=== PATIENT | male | born 1955 | race Caucasian/White ===

== ENCOUNTER → 2016-10-28 | Outpatient (CLI) | payer BC ==
[~2016-10-28] MED LIST: ANDROGEL TOP; ASPEC81 PO; HYD10 PO; LRT5 PO; SYN25 PO
--- NOTE | 2016-10-28 11:28 | DIAGNOSTIC IMAGING REPORT ---
EXTREMITY NONVASCULAR LIMITED HISTORY: 61 years-old Male LEFT UPPER GROIN MASS/LUMP COMPARISON: Doppler study 05/28/2014 TECHNIQUE: Multiple real-time sonographic images of the left lower the venous structures were obtained assessing grayscale appearance and color flow FINDINGS: There is occlusive echogenic thrombus within the greater saphenous vein extending to 0.5 cm from the junction with the common femoral vein. This extends from the groin to the calf. No additional thrombi are identified. IMPRESSION: Isolated occlusive thrombus of the greater saphenous vein extends from the groin to the calf and is 2.5 cm in proximity from the junction of the common femoral vein. The above report was generated using voice recognition software. It may contain grammatical, syntax or spelling errors. Electronically signed by: Warren Ribeiro M.D. 10/28/2016 11:27 AM Dictated Date/Time: 10/28/2016 11:24 AM
== END | disposition home or self-care (01) ==
LOC: C.ULTRBC 10:35
PROVIDERS: ATTEND Family Medicine
DX: R59.0 Localized enlarged lymph nodes (principal); I82.812 Embolism and thrombosis of superficial veins of left lower extremity

== ENCOUNTER 2017-07-25 13:09 | Inpatient (IN) | payer BC ==
[~2017-07-25] VITALS: Ht 177.8 cm; Wt 100.7 kg
[2017-07-25] MEDS ORDERED: HYDR20TA PO (13:44)
[2017-07-25] MEDS ORDERED: SIMV20TA2 PO (13:44)
[2017-07-25] MEDS ORDERED: HYD10 PO (13:44)
[2017-07-25] MEDS ORDERED: LEVO100T PO (13:44)
[2017-07-25] MEDS ORDERED: ASPI81TA28 PO (13:44)
[2017-07-25] MEDS ORDERED: ANDG TOP (13:44)
[2017-07-25] MEDS ORDERED: SODIUM CHLORIDE 0.9% 1000ML 1,000 ML IV ONE (13:45)
[2017-07-25] MEDS ORDERED: OPTIRAY 320 IV PRN (14:00)
[2017-07-25 14:19] LABS: BASO % 0.4 %; BASO ABS # 0.02 K/uL (0-0.2); EOS % 0.7 %; EOS ABS # 0.03 K/uL (0-0.5); HEMATOCRIT 43.8 % (42-52); HEMOGLOBIN 15.3 g/dL (14.0-18.0); IG# 0.15 K/uL (0.00-0.02); LYMPH ABS # 1.09 K/uL (1.2-3.4); MEAN CELL VOLUME 86.2 fL (80-100); MEAN CORPUSCULAR HEMOGLOBIN 30.1 pg (25-34); MEAN CORPUSCULAR HGB CONC 34.9 g/dl (32-36); MEAN PLATELET VOLUME 9.5 fL (7.4-10.4); MONO % 13.2 %; NEUT % 58.4 %; NEUT ABS # 2.65 K/uL (1.4-6.5); PLATELET COUNT 327 K/uL (130-400); RED CELL DISTRIBUTION WIDTH CV 13.1 % (11.5-14.5); RED CELL DISTRIBUTION WIDTH SD 41.7 fL (36.4-46.3); WHITE BLOOD COUNT 4.54 K/uL (4.8-10.8)
[2017-07-25 14:26] LABS: PTT PATIENT 28.4 SECONDS (21.0-31.0)
[2017-07-25 14:39] LABS: ALBUMIN 3.9 gm/dl (3.4-5.0); CALCIUM 9.2 mg/dl (8.5-10.1); CREATININE 1.09 mg/dl (0.60-1.40); POTASSIUM 4.2 mmol/L (3.5-5.1)
[2017-07-25 14:41] LABS: TOTAL PROTEIN 7.2 gm/dl (6.4-8.2)
--- NOTE | 2017-07-25 15:53 | DIAGNOSTIC IMAGING REPORT ---
(CHEST FOR PE) ANGIO WITH CLINICAL HISTORY: 62 years-old Male presenting with ^Extensive right side proximal DVT on out patient ultrasound. TECHNIQUE: Multidetector CT angiography of the chest was performed after administration of intravenous contrast. 3-D volumetric and/or maximum intensity projection (MIP) images were subsequently reconstructed for review. IV contrast: 94 mL of Optiray 320. A dose lowering technique was used consistent with the principles of ALARA (as low as reasonably achievable). COMPARISON: None. CT DOSE (mGy.cm): The estimated cumulative dose is 984.07 mGy.cm. FINDINGS: Remedial Teacher topogram: Unremarkable. Pulmonary vasculature: The study is suboptimal for the assessment of the pulmonary vascular tree secondary to timing of the contrast bolus and respiratory motion artifact. Filling defect consistent with pulmonary embolus eccentrically in the distal portion of the right lower lobe pulmonary artery. This extends into segmental branches supplying the posterior basal right lower lobe. No other embolus is identified. Main pulmonary artery is not enlarged. No flattening of the interventricular septum. No intracardiac filling defect. No reflux of contrast into the hepatic veins. Remaining chest: On soft tissue windows, normal thyroid and thoracic inlet. No axillary, supraclavicular, hilar, or mediastinal lymphadenopathy. Atherosclerosis of the aorta. Normal heart size. No pericardial or pleural effusion. Upper abdomen normal. On lung windows, minimal dependent changes likely atelectasis. No other focal nodule or infiltrate. Mild bronchial wall thickening with lower lobe predominance suggested. No interlobular septal thickening. Central airways patent. On bone windows, degenerative changes of the spine. IMPRESSION: 1. Limited pulmonary embolus burden affecting the distal portion of the right lower lobe pulmonary artery and segmental branches supplying the posterior basal segment of the right lower lobe. Eccentricity of this limited abnormality raises suspicion for a subacute or chronic embolus. 2. No CT evidence of right heart strain. 3. Mild bronchial wall thickening could suggest slight congestive change. 4. Atelectasis. No evidence of pulmonary infarct. The report will be called/faxed according to standard departmental protocol. Electronically signed by: Raheem De Leon M.D. 07/25/2017 3:52 PM Dictated Date/Time: 07/25/2017 3:46 PM
--- NOTE | 2017-07-25 16:17 | DIAGNOSTIC IMAGING REPORT ---
ANGIO ABD/PELVIS WITH CONTRAST CLINICAL HISTORY: 62 years-old Male with Extensie right side proximal DVT ON on outpatient ultrasound extensive deep venous thrombosis of the right lower extremity with pulmonary embolus COMPARISON STUDY: CTA of the chest of same day, TECHNIQUE: Following the IV administration of 94 cc of Optiray 320, CT angiogram of the abdomen and pelvis was performed from the lung bases the proximal femora. Images are reviewed in the axial, sagittal, and coronal planes. 3-D MIPS images are created and assessed. IV contrast was administered without complication. A dose lowering technique was utilized adhering to the principles of ALARA. All measurements were obtained according to NASCET criteria. FINDINGS: CT ABDOMEN/PELVIS: Subsegmental bibasilar groundglass opacities suggest atelectasis. Mild bilateral bronchial wall thickening. Eccentric emboli within right lower lobe segmental and subsegmental pulmonary arterial branches is better assessed on CTA of the chest of same day. There is no pneumatosis or pneumoperitoneum identified. The imaged inferior cardiac chambers appear mildly enlarged. Liver, spleen, pancreas and adrenal glands are within normal limits. Gallbladder is also unremarkable. Mild nonspecific bilateral perinephric fat stranding without renal calculi or hydronephrosis. Moderate circumferential wall thickening of the bladder. Small fat filled left inguinal hernia. No retroperitoneal adenopathy. No bowel obstruction. There is mild wall thickening of the mid sigmoid colon with mild pericolonic inflammatory stranding. Several diverticula are also noted within this distribution. There is an ovoid 1.8 cm focus of air along the antimesenteric border of the mid sigmoid colon on image 321 series 5. No drainable fluid collections. The appendix is nicely seen and may be surgically absent. Soft tissues are unremarkable. Bones appear mildly demineralized. Indeterminate 11 mm lucent lesion involves left aspect of the L4 vertebral body. Multilevel degenerative changes about the spine. CTA: Expansile thrombus involves the distal aspect of the right external iliac vein, and visualized common femoral vein. No IVC thrombus identified. No aortic aneurysm or dissection identified. Moderate mixed plaquing of the aorta. Iliac and imaged femoral vessels appear patent. Celiac trunk, superior and inferior mesenteric arteries are widely patent. Bilateral renal arteries are also widely patent. Dual renal arterial supply on the right. Splenic artery appears unremarkable. IMPRESSION: 1. Expansile thrombus involves the distal aspect of the right external iliac vein, and visualized common femoral vein. No IVC thrombus identified. 2. Moderate atherosclerosis of the abdominal aorta without aneurysm or dissection. 3. Colonic diverticulosis with mild inflammatory stranding of the mid sigmoid colon suspicious for mild acute diverticulitis. Focus of ovoid air adjacent to the mid sigmoid colon lumen suggests a large diverticulum or alternatively a small focus of extraluminal air. Close correlation is advised. 4. Moderate wall thickening of the bladder. Correlate with urinalysis to exclude cystitis. The above report was generated using voice recognition software. It may contain grammatical, syntax or spelling errors. Electronically signed by: Warren Ribeiro M.D. 07/25/2017 4:15 PM Dictated Date/Time: 07/25/2017 3:55 PM
[2017-07-25] MEDS ORDERED: HEPARIN 25000 UNIT/500 ML D5W ONE (16:36)
[2017-07-25] MEDS ORDERED: HEPARIN SOD (PORCINE) 1000 UNIT/ML 10 ML VIAL ONE (16:37)
[2017-07-25] MEDS ORDERED: ACETAMINOPHEN 325 MG TAB PO PRN (18:00)
[2017-07-25] MEDS ORDERED: MAGNESIUM HYDROXIDE SUSP 30 ML UDC PO PRN (18:00)
[2017-07-25] MEDS ORDERED: ONDANSETRON INJ 2 MG/ML 2 ML VIAL IV PRN (18:00)
--- NOTE | 2017-07-25 18:23 | History and Physical ---
History & Physical Date & Time of Service: Jul 25, 2017 at 18:01 Chief Complaint: DVT Primary Care Physician: Jesse Valentino M.D. History of Present Illness Source: patient 62 y/o M c/o R LE redness, swelling, and pain. Pt states that this started about a week ago and has gotten worse since that time. He did drive to [place] on Monday and back on Monday, but this had already started prior to that trip. Pt denies fever, SOB, chest pain, abd pain, n/v/c/d. Pt had a L LE DVT about 10 months ago. He was on xarelto for about 3 weeks for this, but developed a rash and this was stopped. The DVT was small, and it was felt that 3 weeks of xarelto would be sufficient if started on aspirin 81mg to follow. He had no recurrence of this DVT since that time. There was discussion at that time about the potential role of androgel in the development of the initial DVT. Pt had a pituitary adenoma that was tx with surgery and radiation in 2004. This was found to be benign. He was put on androgel at that time. No issues until the DVT in 2017. He decreased his use to QOD after this DVT due to this concern. He has been a bit more fatigued at work lately, but otherwise feels fine. States his appetite is good and he feels like he has gained some weight. He works at [employer] and [employer] and is on his feet all day. No unusual bruising, bleeding. He had a c-scope a few months ago that was neg. His father had prostate ca and pt is on androgel, so he gets checked yearly and has had no issues. No issues with urinary retention, starting/stopping stream, etc. Past Medical/Surgical History Medical Problems: (1) DVT (deep venous thrombosis) Hypothyroid Hyperlipidemia s/p pituitary adenoma tx in 2004, benign Family History Father with prostate cancer Neg for clotting issues Social History Smoking Status: Never Smoker Alcohol Use: none Drug Use: none Allergies Coded Allergies: Rivaroxaban (Unverified Adverse Reaction, Mild, rash, 07/25/17) Home Medications Scheduled Aspirin (Aspirin Ec), 81 MG PO DAILY Hydrocortisone (Cortef), 10 MG PO DAILY Hydrocortisone (Cortef), 20 MG PO DAILY Levothyroxine Sodium (Synthroid), 100 MCG PO DAILY Simvastatin (Zocor), 20 MG PO QPM Testosterone (Androgel), 1 PKT TOP DAILY Review of Systems Pertinent positives and negatives reviewed in HPI--all others negative Physical Exam Vital Signs Date Time Temp Pulse Resp B/P (MAP) Pulse Ox O2 Delivery O2 Flow Rate FiO2 07/25/17 16:58 65 16 145/72 98 Room Air 07/25/17 15:39 72 16 151/91 99 Room Air 07/25/17 13:59 72 16 146/95 98 Room Air 07/25/17 13:59 99 Room Air 07/25/17 13:30 73 07/25/17 13:16 36.4 69 18 149/86 99 Room Air General Appearance: WD/WN, no apparent distress Head: normocephalic, atraumatic Eyes: normal inspection, sclerae normal Respiratory/Chest: normal breath sounds, no respiratory distress Cardiovascular: regular rate, rhythm, normal peripheral pulses Abdomen/GI: non tender, soft Extremities/Musculoskelatal: + pedal edema (R LE), + swelling (R LE), + pertinent finding (Diffuse TTP along R medial LE) Neurologic/Psych: alert, normal mood/affect, oriented x 3 Skin: warm/dry, + pertinent finding (Redness along medial R LE) Diagnostics Laboratory Results Results Past 24 Hours Test 07/25/17 13:50 07/25/17 14:00 07/25/17 14:11 Range/Units White Blood Count 4.54 4.8-10.8 K/uL Red Blood Count 5.08 4.7-6.1 M/uL Hemoglobin 15.3 14.0-18.0 g/dL Hematocrit 43.8 42-52 % Mean Corpuscular Volume 86.2 80-100 fL Mean Corpuscular Hemoglobin 30.1 25-34 pg Mean Corpuscular Hemoglobin Concent 34.9 32-36 g/dl Platelet Count 327 130-400 K/uL Mean Platelet Volume 9.5 7.4-10.4 fL Neutrophils (%) (Auto) 58.4 % Lymphocytes (%) (Auto) 24.0 % Monocytes (%) (Auto) 13.2 % Eosinophils (%) (Auto) 0.7 % Basophils (%) (Auto) 0.4 % Neutrophils # (Auto) 2.65 1.4-6.5 K/uL Lymphocytes # (Auto) 1.09 1.2-3.4 K/uL Monocytes # (Auto) 0.60 0.11-0.59 K/uL Eosinophils # (Auto) 0.03 0-0.5 K/uL Basophils # (Auto) 0.02 0-0.2 K/uL RDW Standard Deviation 41.7 36.4-46.3 fL RDW Coefficient of Variation 13.1 11.5-14.5 % Immature Granulocyte % (Auto) 3.3 % Immature Granulocyte # (Auto) 0.15 0.00-0.02 K/uL Prothrombin Time 10.7 9.0-12.0 SECONDS Prothromb Time International Ratio 1.0 0.9-1.1 Activated Partial Thromboplast Time 28.4 21.0-31.0 SECONDS Partial Thromboplastin Ratio 1.1 Sodium Level 137 136-145 mmol/L Potassium Level 4.2 3.5-5.1 mmol/L Chloride Level 103 98-107 mmol/L Carbon Dioxide Level 27 21-32 mmol/L Anion Gap 7.0 3-11 mmol/L Blood Urea Nitrogen 11 7-18 mg/dl Creatinine 1.09 0.60-1.40 mg/dl Est Creatinine Clear Calc Drug Dose 82.9 ml/min Estimated GFR () 83.3 Estimated GFR (Non- 71.9 BUN/Creatinine Ratio 9.9 10-20 Random Glucose 88 70-99 mg/dl Calcium Level 9.2 8.5-10.1 mg/dl Total Bilirubin 0.6 0.2-1 mg/dl Aspartate Amino Transf (AST/SGOT) 20 15-37 U/L Alanine Aminotransferase (ALT/SGPT) 22 12-78 U/L Alkaline Phosphatase 54 45-117 U/L Total Protein 7.2 6.4-8.2 gm/dl Albumin 3.9 3.4-5.0 gm/dl Globulin 3.3 2.5-4.0 gm/dl Albumin/Globulin Ratio 1.2 0.9-2 Bedside Troponin I < 0.030 0-0.045 ng/ml Diagnostic Radiology CT chest: 1. Limited pulmonary embolus burden affecting the distal portion of the right lower lobe pulmonary artery and segmental branches supplying the posterior basal segment of the right lower lobe. Eccentricity of this limited abnormality raises suspicion for a subacute or chronic embolus. 2. No CT evidence of right heart strain. 3. Mild bronchial wall thickening could suggest slight congestive change. 4. Atelectasis. No evidence of pulmonary infarct. CTAP: 1. Expansile thrombus involves the distal aspect of the right external iliac vein, and visualized common femoral vein. No IVC thrombus identified. 2. Moderate atherosclerosis of the abdominal aorta without aneurysm or dissection. 3. Colonic diverticulosis with mild inflammatory stranding of the mid sigmoid colon suspicious for mild acute diverticulitis. Focus of ovoid air adjacent to the mid sigmoid colon lumen suggests a large diverticulum or alternatively a small focus of extraluminal air. Close correlation is advised. 4. Moderate wall thickening of the bladder. Correlate with urinalysis to exclude cystitis. Impression Assessment and Plan 62 y/o M who was admitted on 07/25 for DVT DVT: extensive R LE DVT Unprovoked by hx with prior hx of L LE DVT unprovoked in 2017 as well Coag work-up initiated in the ED Heparin gtt Rash with xarelto use, would be a good candidate for eliquis--this will need called in to insurance tomorrow for coverage options May need t/c d/c of androgel if other work-up is neg Recent c-scope and prostate screenings neg, CBC neg PE: Subacute to chronic, no hx of respiratory issues Heparin gtt and monitor Hyperlipidemia: continue home meds Hypothyroid: continue home meds Other: Full code Reg diet Heparin gtt for DVT proph Resuscitation Status VTE Prophylaxis Will order VTE Prophylaxis: Yes
--- NOTE | 2017-07-25 18:27 | EMERGENCY ROOM VISIT NOTE ---
History First contact with patient: 13:28 Chief Complaint: REFERRED BY DOCTOR Stated Complaint: DVT History of Present Illness The patient is a 62 year old male who presents to the Emergency Room with complaints of right leg DVT on outpatient ultrasound. 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 He noticed that he was having some increased right leg discomfort over the past 4-5 days, and went his primary care physician today. Ultrasound shows an extensive DVT extending into the proximal iliacs as well as superficial thrombus in the saphenous of the right lower extremity. There was no thrombus noted in the left lower leg. The patient has not had fever or chills. He is not reporting chest pain, chest tightness, or shortness of breath. He does have a one episode of unprovoked DVT in the past, and was on Xarelto. Evidently he developed facial itching and rash while on the Xarelto, and this was ultimately discontinued. He has been doing well for about 8 or 9 months. He states that he did drive to and from [place] this past weekend, but states that he had been having some leg discomfort before this trip. No other significant travel history is reported. He is on Androgel for the past 12 years. No family history of DVT or PE. The patient is on aspirin daily. He otherwise feels well and rates his discomfort a 5/10. Review of Systems More than 10 systems were reviewed and otherwise negative with the exception of history of present illness. Past Medical/Surgical History History of DVT, hypothyroid, elevated cholesterol Family History No pertinent family history Social History Smoking Status: Never Smoker Housing Status: lives with family Occupation Status: employed Current/Historical Medications Scheduled Aspirin (Aspirin Ec), 81 MG PO DAILY Hydrocortisone (Cortef), 10 MG PO DAILY Hydrocortisone (Cortef), 20 MG PO DAILY Levothyroxine Sodium (Synthroid), 100 MCG PO DAILY Simvastatin (Zocor), 20 MG PO QPM Testosterone (Androgel), 1 PKT TOP DAILY Physical Exam Vital Signs Date Time Temp Pulse Resp B/P (MAP) Pulse Ox O2 Delivery O2 Flow Rate FiO2 07/25/17 16:58 65 16 145/72 98 Room Air 07/25/17 15:39 72 16 151/91 99 Room Air 07/25/17 13:59 72 16 146/95 98 Room Air 07/25/17 13:59 99 Room Air 07/25/17 13:30 73 07/25/17 13:16 36.4 69 18 149/86 99 Room Air Physical Exam VITALS: Vitals are noted on the nurse's note and reviewed by myself. Vital signs with slightly elevated blood pressure GENERAL: Well-developed, well-nourished, white male who is cooperative with examination. NECK: Supple without nuchal rigidity. No lymphadenopathy. No thyromegaly. Cervical spine is nontender. HEART: Regular rate and rhythm without murmurs gallops or rubs. LUNGS: Clear to auscultation bilaterally without wheezes, rales or rhonchi. No retractions or accessory muscle use. ABDOMEN: Positive normal bowel sounds x 4. Soft, nontender, without masses or organomegaly. No guarding or rebound tenderness. No rebound or guarding. No CVA tenderness. MUSCULOSKELETAL: Mild edema appreciated throughout the right lower extremity without significant erythema or obvious palpable cord. Neurovascular status intact distally. NEURO: Patient was alert and oriented to person place and time. CN II through XII grossly intact. Medical Decision & Procedures ER Provider Diagnostic Interpretation: (CHEST FOR PE) ANGIO WITH CLINICAL HISTORY: 62 years-old Male presenting with ^Extensive right side proximal DVT on out patient ultrasound. TECHNIQUE: Multidetector CT angiography of the chest was performed after administration of intravenous contrast. 3-D volumetric and/or maximum intensity projection (MIP) images were subsequently reconstructed for review. IV contrast: 94 mL of Optiray 320. A dose lowering technique was used consistent with the principles of ALARA (as low as reasonably achievable). COMPARISON: None. CT DOSE (mGy.cm): The estimated cumulative dose is 984.07 mGy.cm. FINDINGS: Camera Systems Engineer topogram: Unremarkable. Pulmonary vasculature: The study is suboptimal for the assessment of the pulmonary vascular tree secondary to timing of the contrast bolus and respiratory motion artifact. Filling defect consistent with pulmonary embolus eccentrically in the distal portion of the right lower lobe pulmonary artery. This extends into segmental branches supplying the posterior basal right lower lobe. No other embolus is identified. Main pulmonary artery is not enlarged. No flattening of the interventricular septum. No intracardiac filling defect. No reflux of contrast into the hepatic veins. Remaining chest: On soft tissue windows, normal thyroid and thoracic inlet. No axillary, supraclavicular, hilar, or mediastinal lymphadenopathy. Atherosclerosis of the aorta. Normal heart size. No pericardial or pleural effusion. Upper abdomen normal. On lung windows, minimal dependent changes likely atelectasis. No other focal nodule or infiltrate. Mild bronchial wall thickening with lower lobe predominance suggested. No interlobular septal thickening. Central airways patent. On bone windows, degenerative changes of the spine. IMPRESSION: 1. Limited pulmonary embolus burden affecting the distal portion of the right lower lobe pulmonary artery and segmental branches supplying the posterior basal segment of the right lower lobe. Eccentricity of this limited abnormality raises suspicion for a subacute or chronic embolus. 2. No CT evidence of right heart strain. 3. Mild bronchial wall thickening could suggest slight congestive change. 4. Atelectasis. No evidence of pulmonary infarct. ANGIO ABD/PELVIS WITH CONTRAST CLINICAL HISTORY: 62 years-old Male with Extensie right side proximal DVT ON on outpatient ultrasound extensive deep venous thrombosis of the right lower extremity with pulmonary embolus COMPARISON STUDY: CTA of the chest of same day, TECHNIQUE: Following the IV administration of 94 cc of Optiray 320, CT angiogram of the abdomen and pelvis was performed from the lung bases the proximal femora. Images are reviewed in the axial, sagittal, and coronal planes. 3-D MIPS images are created and assessed. IV contrast was administered without complication. A dose lowering technique was utilized adhering to the principles of ALARA. All measurements were obtained according to NASCET criteria. FINDINGS: CT ABDOMEN/PELVIS: Subsegmental bibasilar groundglass opacities suggest atelectasis. Mild bilateral bronchial wall thickening. Eccentric emboli within right lower lobe segmental and subsegmental pulmonary arterial branches is better assessed on CTA of the chest of same day. There is no pneumatosis or pneumoperitoneum identified. The imaged inferior cardiac chambers appear mildly enlarged. Liver, spleen, pancreas and adrenal glands are within normal limits. Gallbladder is also unremarkable. Mild nonspecific bilateral perinephric fat stranding without renal calculi or hydronephrosis. Moderate circumferential wall thickening of the bladder. Small fat filled left inguinal hernia. No retroperitoneal adenopathy. No bowel obstruction. There is mild wall thickening of the mid sigmoid colon with mild pericolonic inflammatory stranding. Several diverticula are also noted within this distribution. There is an ovoid 1.8 cm focus of air along the antimesenteric border of the mid sigmoid colon on image 321 series 5. No drainable fluid collections. The appendix is nicely seen and may be surgically absent. Soft tissues are unremarkable. Bones appear mildly demineralized. Indeterminate 11 mm lucent lesion involves left aspect of the L4 vertebral body. Multilevel degenerative changes about the spine. CTA: Expansile thrombus involves the distal aspect of the right external iliac vein, and visualized common femoral vein. No IVC thrombus identified. No aortic aneurysm or dissection identified. Moderate mixed plaquing of the aorta. Iliac and imaged femoral vessels appear patent. Celiac trunk, superior and inferior mesenteric arteries are widely patent. Bilateral renal arteries are also widely patent. Dual renal arterial supply on the right. Splenic artery appears unremarkable. IMPRESSION: 1. Expansile thrombus involves the distal aspect of the right external iliac vein, and visualized common femoral vein. No IVC thrombus identified. 2. Moderate atherosclerosis of the abdominal aorta without aneurysm or dissection. 3. Colonic diverticulosis with mild inflammatory stranding of the mid sigmoid colon suspicious for mild acute diverticulitis. Focus of ovoid air adjacent to the mid sigmoid colon lumen suggests a large diverticulum or alternatively a small focus of extraluminal air. Close correlation is advised. 4. Moderate wall thickening of the bladder. Correlate with urinalysis to exclude cystitis. Laboratory Results 07/25/17 13:50 Red Blood Count 5.08, Mean Corpuscular Volume 86.2, Mean Corpuscular Hemoglobin 30.1, Mean Corpuscular Hemoglobin Concent 34.9, Mean Platelet Volume 9.5, Neutrophils (%) (Auto) 58.4, Lymphocytes (%) (Auto) 24.0, Monocytes (%) (Auto) 13.2, Eosinophils (%) (Auto) 0.7, Basophils (%) (Auto) 0.4, Neutrophils # (Auto ) 2.65, Lymphocytes # (Auto) 1.09, Monocytes # (Auto) 0.60, Eosinophils # (Auto ) 0.03, Basophils # (Auto) 0.02 07/25/17 13:50 Test 07/25/17 13:50 07/25/17 14:00 07/25/17 14:11 White Blood Count 4.54 K/uL (4.8-10.8) Red Blood Count 5.08 M/uL (4.7-6.1) Hemoglobin 15.3 g/dL (14.0-18.0) Hematocrit 43.8 % (42-52) Mean Corpuscular Volume 86.2 fL (80-100) Mean Corpuscular Hemoglobin 30.1 pg (25-34) Mean Corpuscular Hemoglobin Concent 34.9 g/dl (32-36) Platelet Count 327 K/uL (130-400) Mean Platelet Volume 9.5 fL (7.4-10.4) Neutrophils (%) (Auto) 58.4 % Lymphocytes (%) (Auto) 24.0 % Monocytes (%) (Auto) 13.2 % Eosinophils (%) (Auto) 0.7 % Basophils (%) (Auto) 0.4 % Neutrophils # (Auto) 2.65 K/uL (1.4-6.5) Lymphocytes # (Auto) 1.09 K/uL (1.2-3.4) Monocytes # (Auto) 0.60 K/uL (0.11-0.59) Eosinophils # (Auto) 0.03 K/uL (0-0.5) Basophils # (Auto) 0.02 K/uL (0-0.2) RDW Standard Deviation 41.7 fL (36.4-46.3) RDW Coefficient of Variation 13.1 % (11.5-14.5) Immature Granulocyte % (Auto) 3.3 % Immature Granulocyte # (Auto) 0.15 K/uL (0.00-0.02) Prothrombin Time 10.7 SECONDS (9.0-12.0) Prothromb Time International Ratio 1.0 (0.9-1.1) Activated Partial Thromboplast Time 28.4 SECONDS (21.0-31.0) Partial Thromboplastin Ratio 1.1 Anion Gap 7.0 mmol/L (3-11) Est Creatinine Clear Calc Drug Dose 82.9 ml/min Estimated GFR () 83.3 Estimated GFR (Non- 71.9 BUN/Creatinine Ratio 9.9 (10-20) Calcium Level 9.2 mg/dl (8.5-10.1) Total Bilirubin 0.6 mg/dl (0.2-1) Aspartate Amino Transf (AST/SGOT) 20 U/L (15-37) Alanine Aminotransferase (ALT/SGPT) 22 U/L (12-78) Alkaline Phosphatase 54 U/L (45-117) Total Protein 7.2 gm/dl (6.4-8.2) Albumin 3.9 gm/dl (3.4-5.0) Globulin 3.3 gm/dl (2.5-4.0) Albumin/Globulin Ratio 1.2 (0.9-2) Bedside Troponin I < 0.030 ng/ml (0-0.045) Medications Administered Medications (Trade) Dose Ordered Sig/Micah Route Start Time Stop Time Status Last Admin Dose Admin Sodium Chloride 1,000 ml @ 999 mls/hr Q1H1M ONCE IV 07/25/17 13:45 07/25/17 14:45 DC 07/25/17 14:06 999 MLS/HR Heparin Sodium/ Dextrose (Heparin 25,000 Unit/500ml D5W) 25,000 unit STK-MED ONCE .ROUTE 07/25/17 16:36 07/25/17 16:37 DC 07/25/17 16:46 1,500 UNIT Heparin Sodium (Porcine) (Heparin Iv Bolus) 10,000 unit STK-MED ONCE .ROUTE 07/25/17 16:37 07/25/17 16:38 DC 07/25/17 16:45 7,000 UNIT ED Course Physical exam and history were performed. Nursing notes, EMR, and Medication List were personally reviewed. Patient appears to have an outpatient ultrasound showing extensive DVT that does come proximally into the iliac. On examination the patient does not appear toxic, however this appears to be his second potentially unprovoked DVT in the past 12 months. He previously failed Xarelto after developing an allergic reaction. He is on AndroGel, which is of unknown significance. IV access was established and labs were obtained. 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 The patient's blood work is as above and was reviewed. He does not have a significantly elevated white blood cell count, gross anemia, bandemia, or significant electrolyte imbalance. Transaminases are not diagnostic. INR is normal. Platelet count is also normal. The patient's CT scans are as above and were reviewed by myself and radiology. He appears to have a right-sided PE , which was our primary concern. The patient also appears to have an extensive thrombus in the iliac on the right. There is findings that may suggest a diverticulitis on CT, however at this time the patient does not have a clinical picture that seems to correlate with that. His abdomen was rechecked and continues to be nontender. Troponin is negative. The case was discussed with my attending physician, Dr. Pleitez, who remained involved in care and decision-making. Overall the patient does not appear well for discharge home. He has an extensive right lower leg DVT as well as a pulmonary embolism. This is his second such episode in roughly the past 1 year. We did discuss the case with the on-call hospitalist, and will start the patient on heparin. The hospitalist did agree to evaluate the patient here in the ER for further care and management. Please see their dictation for further patient course, plan, and disposition. The chart was completed utilizing [employer] Speech Voice Recognition Software. Grammatical errors, random word insertions, pronoun errors, and incomplete sentences are an occasional consequence of this system due to software limitations, ambient noise, and hardware issues. Any formal questions or concerns about the content, text, or information contained within the body of this dictation should be directly addressed to the provider for clarification. . Medical Decision Differential diagnosis includes, but is not limited to: DVT/PE, Myocardial infarction, dysrhythmia, pericarditis, pneumothorax, aortic aneurysm/dissection , anxiety, GERD, PUD, electrolyte imbalance, thyroid disorder, pneumonia, bronchitis, pancreatitis, and others Impression Primary Impression: Pulmonary embolism Additional Impression: DVT (deep venous thrombosis) Critical Care I have personally spent greater than 30 minutes of critical care time in the direct management of this patient. This includes bedside care, interpretation of diagnostic studies, and testing, discussion with consultants, patient, and family members, and other required patient management activities. This 30 minutes is in excess of all separately billable procedures. Departure Information Referrals Jesse Valentino M.D. (PCP) Patient Instructions My [facility] Problem Qualifiers Primary Impression: Pulmonary embolism Pulmonary embolism type: other Chronicity: acute Acute cor pulmonale presence: without acute cor pulmonale Qualified Codes: I26.99 - Other pulmonary embolism without acute cor pulmonale Additional Impression: DVT (deep venous thrombosis) DVT location: lower extremity Affected thrombotic vein of extremity: iliac Chronicity: acute Laterality: right Qualified Codes: I82.421 - Acute embolism and thrombosis of right iliac vein
[2017-07-25 19:38] VITALS: BP 151/84; PULSE 63; TEMP 36.5; O2SAT 100
[2017-07-25] MEDS: HEPARIN 25,000 UNIT/500ML D5W 500 ML IV SCH (19:48)
[2017-07-25 19:58] VITALS: BP 151/84; PULSE 63; TEMP 36.5; O2SAT 99; Ht 177.8 cm; Wt 100.7 kg
[2017-07-25] MEDS ORDERED: SIMVASTATIN 20 MG TAB PO SCH (21:00)
[2017-07-25 23:16] LABS: PTT PATIENT 68.2 SECONDS (21.0-31.0)
[2017-07-25 23:22] VITALS: BP 145/83; PULSE 54; TEMP 36.5; O2SAT 98
[2017-07-26 04:42] LABS: HEMATOCRIT 42.6 % (42-52); HEMOGLOBIN 14.8 g/dL (14.0-18.0); MEAN CELL VOLUME 86.4 fL (80-100); MEAN PLATELET VOLUME 9.2 fL (7.4-10.4); PLATELET COUNT 303 K/uL (130-400); RED CELL DISTRIBUTION WIDTH CV 13.3 % (11.5-14.5); RED CELL DISTRIBUTION WIDTH SD 42.3 fL (36.4-46.3); WHITE BLOOD COUNT 4.73 K/uL (4.8-10.8)
[2017-07-26 04:51] LABS: MEAN CORPUSCULAR HGB CONC 34.7 g/dl (32-36)
[2017-07-26 05:00] LABS: PTT PATIENT 65.3 SECONDS (21.0-31.0)
[2017-07-26] MEDS ORDERED: LEVOTHYROXINE 100 MCG TAB PO SCH (06:30)
[2017-07-26 07:30] VITALS: BP 132/76; PULSE 55; TEMP 36.8; O2SAT 98
[2017-07-26] MEDS: HEPARIN 25,000 UNIT/500ML D5W 500 ML IV SCH (08:35)
[2017-07-26] MEDS ORDERED: HYDROCORTISONE 10 MG TAB PO SCH ×2 (09:00)
[2017-07-26] MEDS ORDERED: ASPIRIN 81 MG ECTAB PO SCH (09:00)
[2017-07-26] MEDS ORDERED: APIXABAN 2.5 MG TAB PO ONE (11:45)
[2017-07-26 13:48] VITALS: BP 132/76; PULSE 55; TEMP 36.8; O2SAT 98
[2017-07-26] MEDS ORDERED: APIX1TAB3 PO ×2 (15:05→15:16)
--- NOTE | 2017-07-26 15:11 | Discharge Instructions ---
Discharge Instructions Date of Service Jul 26, 2017. Admission Reason for Admission: Dvt (Deep Venous Thrombosis) Discharge Discharge Diagnosis / Problem: DVT Discharge Goals Goal(s): Improve disease control Activity Recommendations Activity Limitations: resume your previous activity Exercise/Sports Limitations: gradually increase as tolerated . Instructions / Follow-Up Instructions / Follow-Up Please follow up with your primary care provider within about a week You are being sent home with apixaban (Eliquis) for anticoagulation for your deep vein thrombosis in your right leg. You should take this medication 10 mg every 12 hours for 7 days and then reduce your dose to 5 mg every 12 hours. Please tell your doctor right away if you notice blood in your urine or stool or dark tarry stools, if you have excessive bruising or small red spots developing on your skin (petechiae) or any other signs of bleeding. You should report to the emergency department if you become short of breath or develop a rapid heart rate as these could be signs of pulmonary embolism. Current Hospital Diet Patient's current hospital diet: Regular Diet Discharge Diet Recommended Diet: Regular Diet Procedures Procedures Performed: CT angiogram Chest CT Pending Studies Studies pending at discharge: no Medical Emergencies . Who to Call and When: Medical Emergencies: If at any time you feel your situation is an emergency, please call 911 immediately. . Non-Emergent Contact Non-Emergency issues call your: Primary Care Provider Call Non-Emergent contact if: you have a fever, wound has increased redness, wound has increased pain, you have any medication questions . . "Provider Documentation" section prepared by Cindi Salgado. .
--- NOTE | 2017-07-26 15:25 | Discharge Summary ---
Discharge Summary Date of Service Jul 26, 2017. Discharge Summary Admission Date: Jul 25, 2017 at 18:01 Discharge Date: Jul 26, 2017 Discharge Disposition: Home Principal Diagnosis: Right leg DVT Procedures: ANGIO ABD/PELVIS WITH CONTRAST CLINICAL HISTORY: 62 years-old Male with Extensie right side proximal DVT ON on outpatient ultrasound extensive deep venous thrombosis of the right lower extremity with pulmonary embolus COMPARISON STUDY: CTA of the chest of same day, TECHNIQUE: Following the IV administration of 94 cc of Optiray 320, CT angiogram of the abdomen and pelvis was performed from the lung bases the proximal femora. Images are reviewed in the axial, sagittal, and coronal planes. 3-D MIPS images are created and assessed. IV contrast was administered without complication. A dose lowering technique was utilized adhering to the principles of ALARA. All measurements were obtained according to NASCET criteria. FINDINGS: CT ABDOMEN/PELVIS: Subsegmental bibasilar groundglass opacities suggest atelectasis. Mild bilateral bronchial wall thickening. Eccentric emboli within right lower lobe segmental and subsegmental pulmonary arterial branches is better assessed on CTA of the chest of same day. There is no pneumatosis or pneumoperitoneum identified. The imaged inferior cardiac chambers appear mildly enlarged. Liver, spleen, pancreas and adrenal glands are within normal limits. Gallbladder is also unremarkable. Mild nonspecific bilateral perinephric fat stranding without renal calculi or hydronephrosis. Moderate circumferential wall thickening of the bladder. Small fat filled left inguinal hernia. No retroperitoneal adenopathy. No bowel obstruction. There is mild wall thickening of the mid sigmoid colon with mild pericolonic inflammatory stranding. Several diverticula are also noted within this distribution. There is an ovoid 1.8 cm focus of air along the antimesenteric border of the mid sigmoid colon on image 321 series 5. No drainable fluid collections. The appendix is nicely seen and may be surgically absent. Soft tissues are unremarkable. Bones appear mildly demineralized. Indeterminate 11 mm lucent lesion involves left aspect of the L4 vertebral body. Multilevel degenerative changes about the spine. CTA: Expansile thrombus involves the distal aspect of the right external iliac vein, and visualized common femoral vein. No IVC thrombus identified. No aortic aneurysm or dissection identified. Moderate mixed plaquing of the aorta. Iliac and imaged femoral vessels appear patent. Celiac trunk, superior and inferior mesenteric arteries are widely patent. Bilateral renal arteries are also widely patent. Dual renal arterial supply on the right. Splenic artery appears unremarkable. IMPRESSION: 1. Expansile thrombus involves the distal aspect of the right external iliac vein, and visualized common femoral vein. No IVC thrombus identified. 2. Moderate atherosclerosis of the abdominal aorta without aneurysm or dissection. 3. Colonic diverticulosis with mild inflammatory stranding of the mid sigmoid colon suspicious for mild acute diverticulitis. Focus of ovoid air adjacent to the mid sigmoid colon lumen suggests a large diverticulum or alternatively a small focus of extraluminal air. Close correlation is advised. 4. Moderate wall thickening of the bladder. Correlate with urinalysis to exclude cystitis. The above report was generated using voice recognition software. It may contain grammatical, syntax or spelling errors. Electronically signed by: Warren Ribeiro M.D. 07/25/2017 4:15 PM (CHEST FOR PE) ANGIO WITH CLINICAL HISTORY: 62 years-old Male presenting with ^Extensive right side proximal DVT on out patient ultrasound. TECHNIQUE: Multidetector CT angiography of the chest was performed after administration of intravenous contrast. 3-D volumetric and/or maximum intensity projection (MIP) images were subsequently reconstructed for review. IV contrast: 94 mL of Optiray 320. A dose lowering technique was used consistent with the principles of ALARA (as low as reasonably achievable). COMPARISON: None. CT DOSE (mGy.cm): The estimated cumulative dose is 984.07 mGy.cm. 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 Pulmonary vasculature: The study is suboptimal for the assessment of the pulmonary vascular tree secondary to timing of the contrast bolus and respiratory motion artifact. Filling defect consistent with pulmonary embolus eccentrically in the distal portion of the right lower lobe pulmonary artery. This extends into segmental branches supplying the posterior basal right lower lobe. No other embolus is identified. Main pulmonary artery is not enlarged. No flattening of the interventricular septum. No intracardiac filling defect. No reflux of contrast into the hepatic veins. Remaining chest: On soft tissue windows, normal thyroid and thoracic inlet. No axillary, supraclavicular, hilar, or mediastinal lymphadenopathy. Atherosclerosis of the aorta. Normal heart size. No pericardial or pleural effusion. Upper abdomen normal. On lung windows, minimal dependent changes likely atelectasis. No other focal nodule or infiltrate. Mild bronchial wall thickening with lower lobe predominance suggested. No interlobular septal thickening. Central airways patent. On bone windows, degenerative changes of the spine. IMPRESSION: 1. Limited pulmonary embolus burden affecting the distal portion of the right lower lobe pulmonary artery and segmental branches supplying the posterior basal segment of the right lower lobe. Eccentricity of this limited abnormality raises suspicion for a subacute or chronic embolus. 2. No CT evidence of right heart strain. 3. Mild bronchial wall thickening could suggest slight congestive change. 4. Atelectasis. No evidence of pulmonary infarct. The report will be called/faxed according to standard departmental protocol. Electronically signed by: Raheem De Leon M.D. 07/25/2017 3:52 PM Medication Reconciliation New Medications: Apixaban (Eliquis) 5 Mg Tab 5 MG PO BID for 30 Days, #69 TAB please take 10 mg (two tabs)every 12 hours for 7 days and then decrease to 5 mg (one tab) every 12 hours thereafter Continued Medications: Hydrocortisone (Cortef) 10 Mg Tab 10 MG PO DAILY Hydrocortisone (Cortef) 20 Mg Tab 20 MG PO DAILY, TAB Levothyroxine Sodium (Synthroid) 100 Mcg Tab 100 MCG PO DAILY, TAB Simvastatin (Zocor) 20 Mg Tab 20 MG PO QPM, TAB Discontinued Medications: Aspirin (Aspirin Ec) 81 Mg Tab 81 MG PO DAILY Testosterone (Androgel) 5 Gm Gel 1 PKT TOP DAILY for 90 Days, #90 PKT 1 Refill Discharge Exam ROS Constitutional: no chills, aches, sweats or fever Respiratory: no sob,cough, sputum, or wheezing Cardiac: no chest pain, palpitations, edema, orthopnea or lightheadedness GI: no abdominal pain, nausea, vomiting, diarrhea or constipation : no dysuria or hesitancy Extremities: right lower leg edema/redness Skin: no rash All other systems reviewed and negative General: no distress Eyes: normal inspection, PERLL Respiratory: chest non tender, clear to auscultation, normal breath sounds, no respiratory distress, no accessory muscle use Cardiac: regular rate and rhythm, no rub or gallop, no murmur, no edema, no jvd GI/: active bowel sounds, no abd pain or tenderness, soft, non distended Extremities: right lower extremity edematous and erythematous Neuro/Psych: alert and oriented x 3, normal mood and affect Skin: normal color, dry Hospital Course 62 y/o M c/o R LE redness, swelling, and pain. Pt stated that this started about a week ago and had gotten worse since that time. He did drive to [place] Monday and back on Monday, but this had already started prior to that trip. Pt had a L LE DVT about 10 months ago. He was on xarelto for about 3 weeks for this, but developed a rash and this was stopped. The DVT was small, and it was felt that 3 weeks of xarelto would be sufficient if started on aspirin 81mg to follow. He had no recurrence of this DVT since that time. There was discussion at that time about the potential role of androgel in the development of the initial DVT. Pt had a pituitary adenoma that was tx with surgery and radiation in 2004. This was found to be benign. He was put on androgel at that time. No issues until the DVT in 2017. He decreased his use to QOD after this DVT due to this concern. 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 Discussed with Cindi Salgado NP and agree with findings and plan as documented in the note. Any exceptions or clarifications are listed here: None Patient has some swelling of his right leg is not short of breath is no chest pain. Even with exertion he has had none of these. By his fairly extensive clot load he does not appear to have any right ventricular strain or hemodynamic instability which shows that he should be on Eliquis therapy we did check his pharmacy co-pay and he was prescribed this prior to leaving during his first dose before he left. 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 Patient voiced understanding of this and will follow up with PCP at the time of discharge the vital signs were stable his lungs were clear his legs have 1+ edema but there is no cords or tenderness to his calf Documented By: Jesus Alberto Total Time Spent: Greater than 30 minutes This includes examination of the patient, discharge planning, medication reconciliation, and communication with other providers. Discharge Instructions Please refer to the electronic Patient Visit Report (Discharge Instructions) for additional information. Follow-Up pcp within a week Additional Copies To Jesse Valentino
[2017-07-26] MEDS ORDERED: APIXABAN 2.5 MG TAB PO SCH (21:00)
== END 2017-07-26 15:49 | disposition home or self-care (01) | DRG 299 ==
LOC: C.EDB 13:10 → C.MED 18:01 → ENRESERV 18:19
PROVIDERS: ADMIT Family Medicine; ATTEND Family Medicine
DX: I82.421 Acute embolism and thrombosis of right iliac vein (principal); I26.99 Other pulmonary embolism without acute cor pulmonale; E78.5 Hyperlipidemia, unspecified; E03.9 Hypothyroidism, unspecified; Z86.718 Personal history of other venous thrombosis and embolism; Z86.011 Personal history of benign neoplasm of the brain; Z92.3 Personal history of irradiation; Z79.52 Long term (current) use of systemic steroids; Z79.82 Long term (current) use of aspirin; Z79.899 Other long term (current) drug therapy; Z88.8 Allergy status to other drugs, medicaments and biological substances; Z80.42 Family history of malignant neoplasm of prostate

== ENCOUNTER → 2017-11-21 | Outpatient (CLI) | payer BC ==
[~2017-11-21] MED LIST changes: -ANDROGEL TOP; +APIX1TAB3 PO; -ASPEC81 PO; +HYDR20TA PO; +LEVO100T PO; -LRT5 PO; +SIMV20TA2 PO; -SYN25 PO
== END | disposition home or self-care (01) ==
LOC: C.MAMM 14:48
PROVIDERS: ATTEND Internal Medicine Endocrinology, Diabetes & Metabolism
DX: E29.1 Testicular hypofunction (principal)

== ENCOUNTER 2025-01-17 02:02 | Inpatient (IN) ==
--- NOTE | 2025-01-17 02:32 | Emergency Department Note ---
Impression & Plan Acute hyponatremia ADMIT ED Provider Note HPI: History obtained from patient. The patient is a 69-year-old gentleman with history of DVT, currently on Eliquis, who presents the emergency department with a chief complaint of cough, wheezing, tactile fever, and congestion for the past 2 days. Patient states he has also had some dyspnea. Patient states he is coughing "nonstop". On arrival here to the ED the patient is hemodynamically stable, he is afebrile and saturating well on room air. Patient denies any chest pain. ROS: - Per HPI Differential Diagnosis: Acute bronchitis, pneumonia, COPD exacerbation, sepsis, dehydration/acute kidney injury, critical electrolyte abnormalities, ACS, CHF, amongst other potential pathologies. *Outpatient medications and allergy history reviewed. PE: General: Alert HEENT: Normocephalic, trachea midline Eyes: Extraocular eye movement is intact, no scleral erythema Pulmonary: Clear to auscultation bilaterally, no wheezing Cardio: Regular rate and rhythm GI: Abdomen is soft to palpation : No suprapubic tenderness MSK: No evidence of trauma or malformation of the extremities, no edema Skin: No evidence of rash Neuro: Alert, no focal deficits Psychiatric: Cooperative INDEPENDENT INTERPRETATIONS: playground monitor: (As interpreted by myself): - An order was placed for continuous cardiac monitoring - Patient was noted to be in sinus rhythm with a rate of 80 EKG: (As interpreted by myself): Rate: 78 Rhythm: Normal sinus rhythm Intervals: Within normal limits ST changes: No ST elevation Time: 0234 Chest x-ray: (As interpreted by myself): No focal infiltrate/pneumonia Medical Decision Making: IV was established and lab work obtained, patient was placed on cardiac cath tech. Lab work shows no leukocytosis, hemoglobin is normal, platelet count is slightly elevated at 495, CMP shows a sodium of 115, this appears to be an acute finding. There is no evidence of any acute kidney injury, magnesium is normal, troponin is negative x 1, BNP is normal, chest x-ray does not show any evidence of any obvious pneumonia. Urinalysis shows 1+ ketones, no evidence of infection. EKG per my interpretation shows normal sinus rhythm with a rate of 78. On my reevaluation, upon further history the patient's significant other states that he does have a history of a pituitary adenoma, she states he was treated for this about 20 years ago. He has previously distantly had an issue with hyponatremia. He is not currently on any medications for this and is in between primary care providers. I did recommend admission given the patient's critically low sodium, they are in agreement. Patient states he has had some generalized weakness and generally feels fatigued but otherwise has not had any seizure-like events, he is alert and oriented x 3 here in the ED and appears well otherwise. Patient's case was discussed with the on-call hospitalist, Dr. Barrientos, and the patient was placed for admission in stable condition for further workup of hyponatremia. Consultants/Discussions held with other healthcare providers: - Hospitalist, Dr. Barrientos Disposition discussion held by myself with: - Patient and patient's at the bedside Diagnosis: 1. Hyponatremia, acute, nonspecific 2. Cough, acute Disposition: Admission Adeel Mensah DO Emergency Medicine Past Med/Surg History Problem List (Updated 01/17/25 @ 06:01 by Sam Barrientos MD) SIADH (syndrome of inappropriate ADH production) Hyponatremia with decreased serum osmolality Adrenocortical crisis Bronchopneumonia Encounter for pre-operative examination Prostate cancer screening Benign prostatic hyperplasia with urinary obstruction (Acute) Central hypogonadism (Acute) High hematocrit (Acute) Hypercholesterolemia (Acute) Hypopituitarism (Acute) Incomplete bladder emptying (Acute) DVT (deep venous thrombosis) Medical History (Updated 01/17/25 @ 06:01 by Sam Barrientos MD) Central hypogonadism Benign prostatic hyperplasia Hypopituitarism Hypercholesteremia Hx of pulmonary embolus (2018) Hx of deep venous thrombosis (2018) Surgical History History of right cataract extraction History of colonoscopy History of surgery "transsphenoidal tumor removal" History of appendectomy History of tonsillectomy and adenoidectomy History of hernia repair inguinal History of craniotomy pituitary gland adenoma Family History Father CHF (congestive heart failure) Cardiac disorder Diabetes Prostate cancer Social History Smoking Status: Never smoker Second Hand Exposure: No; Do You Dip or Chew Tobacco: No; Hx Alcohol Use: Yes ("a couple drinks on the weekends") Alcohol type: beer, wine and hard liquor Hx Substance Use: No Preferred Language: Turkmen Communication Ability: Effective Brazer Resistance Required: No Beliefs That Will Affect Care: None Current Living Situation: Spouse Feels Safe at Home: Yes Assistive Devices: Glasses Allergies Allergies Allergy/AdvReac Type Severity Reaction Status Date / Time rivaroxaban Allergy Intermediate RASH "DID Verified 01/17/25 02:42 NOT AGREE WITH ME" Home Meds Home Medications Medication Instructions Recorded Confirmed apixaban 5 mg tablet (Eliquis) 5 mg PO BID 06/24/20 01/17/25 hydrocortisone 10 mg tablet 10 mg PO QPM 06/24/20 01/17/25 hydrocortisone 20 mg tablet 20 mg PO QAM 06/24/20 01/17/25 levothyroxine 112 mcg tablet 112 mcg PO QAM 06/24/20 01/17/25 simvastatin 20 mg tablet 20 mg PO HS 06/24/20 01/17/25 tamsulosin 0.4 mg capsule 0.4 mg PO HS 01/06/22 01/17/25 testosterone cypionate 100 mg/mL 50 mg IM .Q2WK 01/17/25 01/17/25 intramuscular oil Results & Data (ED) Vital Signs Vital Signs - 24 hr 01/17/25 02:16 01/17/25 02:33 01/17/25 02:33 Temperature 36.9 C Temperature Source Oral Pulse Rate 97 H Pulse Rate [Right Finger] Pulse Rhythm Pulse Rhythm [Right Finger] Respiratory Rate Respiratory Effort / Characteristics Non-Labored Respiratory Depth Normal Respiratory Pattern Regular Blood Pressure 145/95 H Blood Pressure [Right Arm] Blood Pressure Mean 111 Blood Pressure Mean [Right Arm] Pulse Oximetry 98 96 Oxygen Delivery Method Room Air Room Air Room Air Sepsis Recent Fever Within 48 Hours Yes Sepsis New/Unexplained Change in Mental Status No Sepsis Action Taken by Nursing No Action Required 01/17/25 02:33 01/17/25 02:37 01/17/25 02:43 Temperature Temperature Source Pulse Rate 79 75 Pulse Rate [Right Finger] 79 Pulse Rhythm Regular Pulse Rhythm [Right Finger] Regular Respiratory Rate 16 16 Respiratory Effort / Characteristics Non-Labored Respiratory Depth Normal Respiratory Pattern Blood Pressure Blood Pressure [Right Arm] 134/77 Blood Pressure Mean Blood Pressure Mean [Right Arm] 96 Pulse Oximetry 96 96 Oxygen Delivery Method Room Air Room Air Sepsis Recent Fever Within 48 Hours Sepsis New/Unexplained Change in Mental Status Sepsis Action Taken by Nursing 01/17/25 04:00 01/17/25 05:00 01/17/25 06:00 Temperature Temperature Source Pulse Rate Pulse Rate [Right Finger] 74 75 76 Pulse Rhythm Pulse Rhythm [Right Finger] Regular Regular Regular Respiratory Rate 16 16 16 Respiratory Effort / Characteristics Non-Labored Non-Labored Respiratory Depth Normal Normal Respiratory Pattern Blood Pressure Blood Pressure [Right Arm] 115/65 125/70 128/66 Blood Pressure Mean Blood Pressure Mean [Right Arm] 81 88 86 Pulse Oximetry 97 97 96 Oxygen Delivery Method Room Air Room Air Sepsis Recent Fever Within 48 Hours Sepsis New/Unexplained Change in Mental Status Sepsis Action Taken by Nursing Laboratory Data 01/17/25 02:36 01/17/25 02:36 Lab Results 01/17/25 01/17/25 01/17/25 Range/Units 02:30 02:36 04:07 WBC 8.89 (4.8-10.8) K/ul RBC 5.60 (4.70-6.10) M/uL Hgb 15.9 (14.0-18.0) g/dl Hct 43.7 (42.0-52.0) % MCV 78.0 L (80.0-100.0) fL MCH 28.4 (25.0-34.0) pg MCHC 36.4 H (32.0-36.0) g/dL RDW Std Deviation 38.5 (36.4-46.3) fL RDW Coeff of Steven 13.6 (11.5-14.5) % Plt Count 495 H (130-400) K/uL MPV 9.4 (9.4-12.4) fL Immature Gran % (Auto) 3.7 % Neut % (Auto) 50.3 % Lymph % (Auto) 19.2 % [place] % (Auto) 25.3 % Eos % (Auto) 0.2 % Baso % (Auto) 1.3 % Neut # (Auto) 4.46 (1.40-6.50) K/uL Lymph # (Auto) 1.71 (1.20-3.40) K/uL [place] # (Auto) 2.25 H (0.11-0.59) K/uL Eos # (Auto) 0.02 (0.00-0.50) K/uL Baso # (Auto) 0.12 (0.00-0.20) K/uL Immature Gran # (Auto) 0.33 H (0.01-0.20) K/uL PT 12.4 H (9.0-12.0) Seconds INR 1.2 H (0.9-1.1) Sodium 115 L* (136-145) mmol/L Potassium 4.0 (3.5-5.1) mmol/L Chloride 82 L (98-107) mmol/L Carbon Dioxide 26 (21-32) mmol/L Anion Gap 7 (3-11) BUN 10 (6-23) mg/dl Creatinine 1.01 (0.6-1.4) mg/dl Est Cr Clr Drug Dosing 80.5 ml/min eGFR 80.01 BUN/Creatinine Ratio 9.9 L (10-20) Glucose 84 (70-99(Fasting)) mg/dl Osmolality 243 L (280-300) mOsm/kg Calcium 9.1 (8.6-10.3) mg/dl Magnesium 1.7 (1.7-2.4) mg/dl Total Bilirubin 1.3 H (0.2-1.0) mg/dl AST 33 (13-39) U/L ALT 22 (7-52) U/L Alkaline Phosphatase 56 (34-104) U/L Troponin I High Sens 7.0 (0-20) pg/ml B-Natriuretic Peptide 55 (0-100) pg/ml Total Protein 7.2 (6.0-8.3) gm/dl Albumin 4.4 (3.4-5.0) gm/dl Globulin 2.8 (2.5-4.0) gm/dl Albumin/Globulin Ratio 1.6 (0.9-2) Urine Color Yellow Urine Appearance Clear (Clear) Urine pH 6.5 (4.5-7.5) Ur Specific [place] 1.012 (1.000-1.030) Urine Protein Negative (Negative) Urine Glucose (UA) Negative (Negative) Urine Ketones 1+ H (Negative) Urine Blood Negative (Negative) Urine Nitrite Negative (Negative) Urine Bilirubin Negative (Negative) Urine Urobilinogen Negative (Negative) Ur Leukocyte Esterase Negative (Negative) Urine Osmolality 342 L (500-800) mOsm/kg Urine Comment Adenovirus (PCR) Not Detected (NotDetected) B. pertussis DNA (PCR) Not Detected (NotDetected) B.parapertussis DNA PCR Not Detected (NotDetected) C. pneumoniae DNA (PCR) Not Detected (NotDetected) Coronavirus OC43 (PCR) Not Detected (NotDetected) Coronavirus HKU1 (PCR) Not Detected (NotDetected) Coronavirus 229E (PCR) Not Detected (NotDetected) SARS-CoV-2 (PCR) Not Detected (NotDetected) Coronavirus NL63 (PCR) Not Detected (NotDetected) Human Metapneumovir PCR Not Detected (NotDetected) Influenza Type A (PCR) Not Detected (NotDetected) Influenza Type B (PCR) Not Detected (NotDetected) M. pneumoniae (PCR) Not Detected (NotDetected) Parainfluenza 1 (PCR) Not Detected (NotDetected) Parainfluenza 2 (PCR) Not Detected (NotDetected) Parainfluenza 3 (PCR) Not Detected (NotDetected) Parainfluenza 4 (PCR) Not Detected (NotDetected) RSV (PCR) Not Detected (NotDetected) Entero/Rhino (PCR) Not Detected (NotDetected) Administered Medications Discontinued Medications Guaifenesin (Guaifenesin 600 Mg Tabcr) 1,200 mg PO NOW STA Stop: 01/17/25 04:53 Last Admin: 01/17/25 05:52 Dose: 1,200 mg Documented By: MARITZA Hydrocortisone Sodium Succinate (Hydrocortisone Sod Succinate 100 Mg/2 Ml Vial) 100 mg IV NOW STA Stop: 01/17/25 04:53 Last Admin: 01/17/25 05:53 Dose: 100 mg Documented By: MARITZA Sodium Chloride (Hypertonic Saline 3%) 100 mls @ 600 mls/hr IV .Q10M ONE; Protocol Stop: 01/17/25 05:04 Last Admin: 01/17/25 05:53 Dose: 600 mls/hr Documented By: MARITZA Co-signed By: MARAL Cefepime HCl (Maxipime 2000mg) 2,000 mg in 20 mls @ 5 mls/min IV NOW STA; Protocol Stop: 01/17/25 05:09 Last Admin: 01/17/25 05:52 Dose: 5 mls/min Documented By: NAW Imaging Data Radiologist's Impression: Chest X-Ray 01/17/25 02:26 EXAM: XR chest 1V portable CLINICAL HISTORY: Wheezing TECHNIQUE: An X-ray image of the chest was obtained in AP portable projection. 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 FINDINGS: Pulmonary Parenchyma: Stable, bilateral, scattered interstitial and reticular markings with coarsening of the interstitium are most prominent in the basal zones and along septal and subpleural lines, consistent with chronic vascular congestion and age-related interstitial changes. No new consolidation, focal opacity, or collapse is identified. No pulmonary nodules are seen. The costo-phrenic and cardio-phrenic angles remain clear. Heart and Mediastinum: The cardio-thoracic ratio remains prominent, attributed to AP projection and patient positioning. A mildly dilated thoracic aorta is noted, unchanged from the prior study. Hilar and para-cardiac markings remain prominent but stable. No new mediastinal widening or lymphadenopathy is seen. Pleura: No pleural effusion or pleural thickening is identified. Bony Thorax: The visualized bony structures are intact. No fracture or deformity is identified. Soft Tissues: The soft tissues of the chest wall are unremarkable. IMPRESSION: 1. Stable, bilateral interstitial and reticular changes with basal septal and subpleural lines likely represent chronic or age-related vascular congestion. 2. No new consolidation, effusion, or acute cardiopulmonary pathology. 3. No significant interval changes. Electronically signed by Miguel Melendez 01-17-2025 03:45 AM Discharge Plan Visit Data Chief Complaint: Respiratory Problems Stated Complaint: RSV? ED Provider: Adeel Mensah Discharge Problem: Acute hyponatremia Patient Disposition: Admitted As Inpatient Condition: Fair Forms Stand Alone Forms: My [facility] Prescriptions Prescriptions: No Action levothyroxine 112 mcg tablet 112 mcg PO QAM simvastatin 20 mg tablet 20 mg PO HS hydrocortisone 10 mg tablet 10 mg PO QPM hydrocortisone 20 mg tablet 20 mg PO QAM Eliquis 5 mg tablet 5 mg PO BID tamsulosin 0.4 mg Capsule 0.4 mg PO HS testosterone cypionate 100 mg/mL oil 50 mg IM .Q2WK Referrals Referrals: Ian Valentino MD [Outside Practitioners] -
[2025-01-17 03:03] LABS: Hematocrit (blood only) 43.7 % (42.0-52.0); Hemoglobin 15.9 g/dl (14.0-18.0); Immature Granulocytes # (auto) 0.33 K/uL (0.01-0.20); Immature Granulocytes % (auto) 3.7 %; Mean Corpuscular Hemoglobin 28.4 pg (25.0-34.0); Mean Corpuscular Volume 78.0 fL (80.0-100.0); Platelet Count 495 K/uL (130-400); RDW Standard Deviation 38.5 fL (36.4-46.3); Red Blood Count 5.60 M/uL (4.70-6.10); White Blood Count 8.89 K/ul (4.8-10.8)
[2025-01-17 03:29] LABS: Alanine Aminotransferase 22.0 U/L (7-52); Albumin Globulin Ratio 1.6 (0.9-2); Albumin Level 4.4 gm/dl (3.4-5.0); Alkaline Phosphatase 56.0 U/L (34-104); Anion Gap 7.0 (3-11); Bilirubin,Total 1.3 mg/dl (0.2-1.0); Blood Urea Nitrogen 10.0 mg/dl (6-23); Calcium 9.1 mg/dl (8.6-10.3); Carbon Dioxide 26.0 mmol/L (21-32); Chloride 82.0 mmol/L (98-107); Creatinine Clr Calc Pharmacy 80.5 ml/min; Globulin 2.8 gm/dl (2.5-4.0); Glucose 84.0 mg/dl (70-99(Fasting)); Potassium 4.0 mmol/L (3.5-5.1); Sodium 115.0 mmol/L (136-145); Total Protein 7.2 gm/dl (6.0-8.3)
[2025-01-17 03:41] LABS: INR 1.2 (0.9-1.1); Prothrombin Time 12.4 Seconds (9.0-12.0)
--- NOTE | 2025-01-17 03:46 | XRay Report ---
EXAM: XR chest 1V portable CLINICAL HISTORY: Wheezing TECHNIQUE: An X-ray image of the chest was obtained in AP portable projection. 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 FINDINGS: Pulmonary Parenchyma: Stable, bilateral, scattered interstitial and reticular markings with coarsening of the interstitium are most prominent in the basal zones and along septal and subpleural lines, consistent with chronic vascular congestion and age-related interstitial changes. No new consolidation, focal opacity, or collapse is identified. No pulmonary nodules are seen. The costo-phrenic and cardio-phrenic angles remain clear. Heart and Mediastinum: The cardio-thoracic ratio remains prominent, attributed to AP projection and patient positioning. A mildly dilated thoracic aorta is noted, unchanged from the prior study. Hilar and para-cardiac markings remain prominent but stable. No new mediastinal widening or lymphadenopathy is seen. Pleura: No pleural effusion or pleural thickening is identified. Bony Thorax: The visualized bony structures are intact. No fracture or deformity is identified. Soft Tissues: The soft tissues of the chest wall are unremarkable. IMPRESSION: 1. Stable, bilateral interstitial and reticular changes with basal septal and subpleural lines likely represent chronic or age-related vascular congestion. 2. No new consolidation, effusion, or acute cardiopulmonary pathology. 3. No significant interval changes. Electronically signed by Miguel Melendez 01-17-2025 03:45 AM
[2025-01-17 03:48] LABS: Chlamydia pneumoniae PCR Not Detected (NotDetected); Coronavirus 229E PCR Not Detected (NotDetected); Coronavirus CoV-2 (COVID19)PCR Not Detected (NotDetected); Coronavirus HKU1 PCR Not Detected (NotDetected); Coronavirus NL63 PCR Not Detected (NotDetected); Coronavirus OC43PCR Not Detected (NotDetected); Human Metapneumovirus PCR Not Detected (NotDetected); Parainfluenza Virus 1 PCR Not Detected (NotDetected); Parainfluenza Virus 2 PCR Not Detected (NotDetected); Parainfluenza Virus 3 PCR Not Detected (NotDetected); Parainfluenza Virus 4 PCR Not Detected (NotDetected); Respiratory Syncytial VirusPCR Not Detected (NotDetected); Rhinovirus/Enterovirus PCR Not Detected (NotDetected)
[2025-01-17 04:17] LABS: Appearance Urine Clear (Clear); Glucose Urine UA Negative (Negative)
[2025-01-17] MEDS ORDERED: STAT IV/IM STA (04:55)
--- NOTE | 2025-01-17 05:20 | History & Physical Report ---
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 The patient presents to the emergency department, at the suggestion of his , after 3 days of worsening chest/head and throat congestion, harsh cough, audible wheezing, progressive fatigue, and decreased oral intake. Workup in the emergency department included abnormal laboratories: Sodium 115, serum osmolality 243, urine osmolality 342 INR 1.2, total bilirubin 1.3, and negative BioFire test. Chest x-ray suggest congestion, bronchitic versus mild vascular. [facility] The patient will be admitted to the [facility]. Bronchopneumonia/immunocompromised patient- Progressively worsening symptoms over the past 3 days reports that she hears him with audible wheezing and crackling when he is trying to sleep at night. Treat as healthcare associated Cefepime 2 g IV every 8 hours Azithromycin 500 mg IV every 24 hours MRSA swab Respiratory BioFire test negative Duonebs every 4 hours while awake and every 2 hours when necessary. Guaifenesin extended release 12 mg now then 60 mg p.o. every 12 hours Hycodan syrup 5 mg p.o. every 4 hours as needed severe cough Acetaminophen 1 g IV every 8 hours as needed for mild pain or fever Pantoprazole 40 mg IV every morning Serial CBC with differential, chemistry profile, magnesium level, PT/INR/PTT every morning Stress dose hydrocortisone as noted below CT chest ordered and pending Hyponatremia/SIADH- Sodium 115 Serum osmolality 243 Urine osmolality 342 Hypertonic saline 3%, 100 mL IV now Sodium chloride 1 g p.o. twice daily BMP every 4 hours Treatment of adrenal sufficiency with crisis as below. Consider Samsca if insignificant improvement Hypopituitarism/central hypogonadism/central hypothyroidism/adrenocortical insufficiency with crisis- Hold hydrocortisone 20 mg every morning and 10 mg every afternoon. Patient had increased to 20 mg twice daily 3 days ago, as had been directed by his outpatient physician if he got sick. Hydrocortisone 100 mg IV every 8 hours Add fludrocortisone 0.1 mg p.o. every morning Continue levothyroxine 112 mcg every morning On testosterone cypionate 50 mg IM every 2 weeks in the outpatient setting Right lower extremity DVT/PE- Continue apixaban Hyperlipidemia- Continue simvastatin BPH with LUTS- Continue tamsulosin at bedtime History of Present Illness Chief Complaint: The patient presents to the emergency department, at the suggestion of his , after 3 days of worsening chest congestion, harsh cough, audible wheezing, progressive fatigue, and decreased oral intake. Workup in the emergency department included abnormal laboratories: Sodium 115, serum osmolality 243, urine osmolality 342 INR 1.2, total bilirubin 1.3, and negative BioFire test. Chest x-ray suggest congestion, bronchitic versus mild vascular. 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 The patient presents to the emergency department, at the suggestion of his , after 3 days of worsening chest congestion, harsh cough, audible wheezing, progressive fatigue, and decreased oral intake. Workup in the emergency department included abnormal laboratories: Sodium 115, serum osmolality 243, urine osmolality 342 INR 1.2, total bilirubin 1.3, and negative BioFire test. Chest x-ray suggest congestion, bronchitic versus mild vascular. The [facility] The patient will be admitted to the PCU. Allergies Allergy/AdvReac Type Severity Reaction Status Date / Time rivaroxaban Allergy Intermediate RASH "DID Verified 01/17/25 02:42 NOT AGREE WITH ME" Home Medications Medication Instructions Recorded Confirmed Type apixaban 5 mg tablet (Eliquis) 5 mg PO BID 06/24/20 01/17/25 History hydrocortisone 10 mg tablet 10 mg PO QPM 06/24/20 01/17/25 History hydrocortisone 20 mg tablet 20 mg PO QAM 06/24/20 01/17/25 History levothyroxine 112 mcg tablet 112 mcg PO QAM 06/24/20 01/17/25 History simvastatin 20 mg tablet 20 mg PO HS 06/24/20 01/17/25 History tamsulosin 0.4 mg capsule 0.4 mg PO HS 01/06/22 01/17/25 History testosterone cypionate 100 mg/mL 50 mg IM .Q2WK 01/17/25 01/17/25 History intramuscular oil Past Med/Surg History Problem List (Updated 01/17/25 @ 06:01 by Sam Barrientos MD) SIADH (syndrome of inappropriate ADH production) Hyponatremia with decreased serum osmolality Adrenocortical crisis Bronchopneumonia Encounter for pre-operative examination Prostate cancer screening Benign prostatic hyperplasia with urinary obstruction (Acute) Central hypogonadism (Acute) High hematocrit (Acute) Hypercholesterolemia (Acute) Hypopituitarism (Acute) Incomplete bladder emptying (Acute) DVT (deep venous thrombosis) Medical History (Updated 01/17/25 @ 06:01 by Sam Barrientos MD) Central hypogonadism Benign prostatic hyperplasia Hypopituitarism Hypercholesteremia Hx of pulmonary embolus (2018) Hx of deep venous thrombosis (2018) Surgical History History of right cataract extraction History of colonoscopy History of surgery "transsphenoidal tumor removal" History of appendectomy History of tonsillectomy and adenoidectomy History of hernia repair inguinal History of craniotomy pituitary gland adenoma Family History Father CHF (congestive heart failure) Cardiac disorder Diabetes Prostate cancer Social History Smoking Status: Never smoker Second Hand Exposure: No; Do You Dip or Chew Tobacco: No; Hx Alcohol Use: Yes ("a couple drinks on the weekends") Alcohol type: beer, wine and hard liquor Hx Substance Use: No Preferred Language: [place] Communication Ability: Effective Nuclear Physicist Required: No Beliefs That Will Affect Care: None Current Living Situation: Spouse Feels Safe at Home: Yes Assistive Devices: Glasses Review of Systems Review of Systems: The patient denies palpitations, lower extremity swelling, fevers, chills, sweats, nausea, vomiting, diarrhea , constipation, abdominal pain, pelvic pain, blood in urine or stool, dysuria, urinary frequency or urgency, lightheadedness, dizziness, memory loss, loss of consciousness, rash, abnormal bruising or bleeding, imbalance, focal weakness, numbness or tingling in arms or legs, back or neck pain, or night sweats. The review of systems is otherwise negative other than for that already noted above, and at least 10 systems have been reviewed. Physical Exam Physical Exam: The patient is awake, alert and oriented 3, well developed and well nourished, normocephalic and atraumatic, lying in bed and in no acute distress. HEENT--PERRL, EOMI, mucous membranes and oropharynx mildly dry. Neck--supple. No JVD. No bruits. Thyroid normal, trachea midline, no adenopathy. Heart--normal S1 and S2. No murmurs, rubs or gallops. Lungs--coarse breath sounds and wheezes bilaterally, right greater than left. No respiratory distress, no accessory muscle use. Abdomen--normal bowel sounds and soft. Nontender. Nondistended, no hernias or masses, no organomegaly. Extremities--No edema. There are good distal pulses b/l. Dermatologic--normal skin turgor, normal color, no abnormal lymph nodes, no rash. Neurologic--cranial nerves II through XII grossly intact. Rheumatologic--normal range of motion. Psychiatric--normal affect. Results & Data Results & Data Vital Signs (Past 12 Hours) Vital Signs Temp Pulse Pulse Resp BP BP Pulse Ox 01/17/25 05:00 75 16 125/70 97 01/17/25 04:00 74 16 115/65 97 01/17/25 02:43 75 01/17/25 02:37 79 16 96 01/17/25 02:33 79 16 134/77 96 01/17/25 02:33 96 01/17/25 02:33 01/17/25 02:16 36.9 C 97 H 145/95 H 98 O2 Del Method 01/17/25 05:00 01/17/25 04:00 Room Air 01/17/25 02:43 01/17/25 02:37 Room Air 01/17/25 02:33 Room Air 01/17/25 02:33 Room Air 01/17/25 02:33 Room Air 01/17/25 02:16 Room Air Laboratory Results Laboratory Results WBC 8.89 K/ul (4.8-10.8) 01/17/25 02:36 RBC 5.60 M/uL (4.70-6.10) 01/17/25 02:36 Hgb 15.9 g/dl (14.0-18.0) 01/17/25 02:36 Hct 43.7 % (42.0-52.0) 01/17/25 02:36 MCV 78.0 fL (80.0-100.0) L 01/17/25 02:36 MCH 28.4 pg (25.0-34.0) 01/17/25 02:36 MCHC 36.4 g/dL (32.0-36.0) H 01/17/25 02:36 RDW Std Deviation 38.5 fL (36.4-46.3) 01/17/25 02:36 RDW Coeff of Steven 13.6 % (11.5-14.5) 01/17/25 02:36 Plt Count 495 K/uL (130-400) H 01/17/25 02:36 MPV 9.4 fL (9.4-12.4) 01/17/25 02:36 Immature Gran % (Auto) 3.7 % 01/17/25 02:36 Neut % (Auto) 50.3 % 01/17/25 02:36 Lymph % (Auto) 19.2 % 01/17/25 02:36 Motley % (Auto) 25.3 % 01/17/25 02:36 Eos % (Auto) 0.2 % 01/17/25 02:36 Baso % (Auto) 1.3 % 01/17/25 02:36 Neut # (Auto) 4.46 K/uL (1.40-6.50) 01/17/25 02:36 Lymph # (Auto) 1.71 K/uL (1.20-3.40) 01/17/25 02:36 Motley # (Auto) 2.25 K/uL (0.11-0.59) H 01/17/25 02:36 Eos # (Auto) 0.02 K/uL (0.00-0.50) 01/17/25 02:36 Baso # (Auto) 0.12 K/uL (0.00-0.20) 01/17/25 02:36 Immature Gran # (Auto) 0.33 K/uL (0.01-0.20) H 01/17/25 02:36 PT 12.4 Seconds (9.0-12.0) H 01/17/25 02:36 INR 1.2 (0.9-1.1) H 01/17/25 02:36 Sodium 115 mmol/L (136-145) L* 01/17/25 02:36 Potassium 4.0 mmol/L (3.5-5.1) 01/17/25 02:36 Chloride 82 mmol/L (98-107) L 01/17/25 02:36 Carbon Dioxide 26 mmol/L (21-32) 01/17/25 02:36 Anion Gap 7 (3-11) 01/17/25 02:36 BUN 10 mg/dl (6-23) 01/17/25 02:36 Creatinine 1.01 mg/dl (0.6-1.4) 01/17/25 02:36 Est Cr Clr Drug Dosing 80.5 ml/min 01/17/25 02:36 eGFR 80.01 01/17/25 02:36 BUN/Creatinine Ratio 9.9 (10-20) L 01/17/25 02:36 Glucose 84 mg/dl (70-99(Fasting)) 01/17/25 02:36 Osmolality 243 mOsm/kg (280-300) L 01/17/25 02:36 Calcium 9.1 mg/dl (8.6-10.3) 01/17/25 02:36 Magnesium 1.7 mg/dl (1.7-2.4) 01/17/25 02:36 Total Bilirubin 1.3 mg/dl (0.2-1.0) H 01/17/25 02:36 AST 33 U/L (13-39) 01/17/25 02:36 ALT 22 U/L (7-52) 01/17/25 02:36 Alkaline Phosphatase 56 U/L (34-104) 01/17/25 02:36 Troponin I High Sens 7.0 pg/ml (0-20) 01/17/25 02:36 B-Natriuretic Peptide 55 pg/ml (0-100) 01/17/25 02:36 Total Protein 7.2 gm/dl (6.0-8.3) 01/17/25 02:36 Albumin 4.4 gm/dl (3.4-5.0) 01/17/25 02:36 Globulin 2.8 gm/dl (2.5-4.0) 01/17/25 02:36 Albumin/Globulin Ratio 1.6 (0.9-2) 01/17/25 02:36 Urine Color Yellow 01/17/25 04:07 Urine Appearance Clear (Clear) 01/17/25 04:07 Urine pH 6.5 (4.5-7.5) 01/17/25 04:07 Ur Specific [place] 1.012 (1.000-1.030) 01/17/25 04:07 Urine Protein Negative (Negative) 01/17/25 04:07 Urine Glucose (UA) Negative (Negative) 01/17/25 04:07 Urine Ketones 1+ (Negative) H 01/17/25 04:07 Urine Blood Negative (Negative) 01/17/25 04:07 Urine Nitrite Negative (Negative) 01/17/25 04:07 Urine Bilirubin Negative (Negative) 01/17/25 04:07 Urine Urobilinogen Negative (Negative) 01/17/25 04:07 Ur Leukocyte Esterase Negative (Negative) 01/17/25 04:07 Urine Osmolality 342 mOsm/kg (500-800) L 01/17/25 04:07 Urine Comment 01/17/25 04:07 Adenovirus (PCR) Not Detected (NotDetected) 01/17/25 02:30 B. pertussis DNA (PCR) Not Detected (NotDetected) 01/17/25 02:30 B.parapertussis DNA PCR Not Detected (NotDetected) 01/17/25 02:30 C. pneumoniae DNA (PCR) Not Detected (NotDetected) 01/17/25 02:30 Coronavirus OC43 (PCR) Not Detected (NotDetected) 01/17/25 02:30 Coronavirus HKU1 (PCR) Not Detected (NotDetected) 01/17/25 02:30 Coronavirus 229E (PCR) Not Detected (NotDetected) 01/17/25 02:30 SARS-CoV-2 (PCR) Not Detected (NotDetected) 01/17/25 02:30 Coronavirus NL63 (PCR) Not Detected (NotDetected) 01/17/25 02:30 Human Metapneumovir PCR Not Detected (NotDetected) 01/17/25 02:30 Influenza Type A (PCR) Not Detected (NotDetected) 01/17/25 02:30 Influenza Type B (PCR) Not Detected (NotDetected) 01/17/25 02:30 M. pneumoniae (PCR) Not Detected (NotDetected) 01/17/25 02:30 Parainfluenza 1 (PCR) Not Detected (NotDetected) 01/17/25 02:30 Parainfluenza 2 (PCR) Not Detected (NotDetected) 01/17/25 02:30 Parainfluenza 3 (PCR) Not Detected (NotDetected) 01/17/25 02:30 Parainfluenza 4 (PCR) Not Detected (NotDetected) 01/17/25 02:30 RSV (PCR) Not Detected (NotDetected) 01/17/25 02:30 Entero/Rhino (PCR) Not Detected (NotDetected) 01/17/25 02:30 Impressions Chest X-Ray 01/17/25 02:26 EXAM: XR chest 1V portable CLINICAL HISTORY: Wheezing TECHNIQUE: An X-ray image of the chest was obtained in AP portable projection. 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 FINDINGS: Pulmonary Parenchyma: Stable, bilateral, scattered interstitial and reticular markings with coarsening of the interstitium are most prominent in the basal zones and along septal and subpleural lines, consistent with chronic vascular congestion and age-related interstitial changes. No new consolidation, focal opacity, or collapse is identified. No pulmonary nodules are seen. The costo-phrenic and cardio-phrenic angles remain clear. Heart and Mediastinum: The cardio-thoracic ratio remains prominent, attributed to AP projection and patient positioning. A mildly dilated thoracic aorta is noted, unchanged from the prior study. Hilar and para-cardiac markings remain prominent but stable. No new mediastinal widening or lymphadenopathy is seen. Pleura: No pleural effusion or pleural thickening is identified. Bony Thorax: The visualized bony structures are intact. No fracture or deformity is identified. Soft Tissues: The soft tissues of the chest wall are unremarkable. IMPRESSION: 1. Stable, bilateral interstitial and reticular changes with basal septal and subpleural lines likely represent chronic or age-related vascular congestion. 2. No new consolidation, effusion, or acute cardiopulmonary pathology. 3. No significant interval changes. Electronically signed by Miguel Melendez 01-17-2025 03:45 AM Code Status & VTE Plan Code Status Full code VTE Prophylaxis Plan VTE Prophylaxis will be ordered: Yes PG Care Time/CCT Total # of Minutes Spent Total Time Spent with Patient: Total time spent is greater than 50% in coordination of care (as documented) at patient's floor/unit and/or counseling patient: 65 minutes Coding Level of Care Code 81636 INT INP/OBS CARE 3/75MIN Diagnoses Bronchopneumonia J18.0 Adrenocortical crisis E27.2 Hyponatremia with decreased serum osmolality E87.1 SIADH (syndrome of inappropriate ADH production) E22.2 Hypopituitarism E23.0
[2025-01-17 05:35] LABS: Magnesium 1.7 mg/dl (1.7-2.4)
[2025-01-17] MEDS: CEFEPIME 2000MG 2,000 MG/20 ML SYR IV STA (05:52)
[2025-01-17] MEDS: guaiFENesin 600 MG TABCR PO STA (05:52)
[2025-01-17] MEDS: HYDROCORTISONE SOD SUCCINATE 100 MG/2 ML VIAL IV STA (05:53)
[2025-01-17] MEDS: SODIUM CHLORIDE 3 % 100 ML IV ONE (05:53)
[2025-01-17] MEDS: AZITHROMYCIN 500 MG/255 ML BAG IV STA (06:05)
[2025-01-17] MEDS: ALBUT/IPRATROP 3MG/0.5MG NEB 3 ML VIAL NEB SCH (06:05)
--- NOTE | 2025-01-17 06:21 | Billing Data ---
Date of Service January 17, 2025 Coding Level of Care Code 31093 CRITICAL CARE
--- NOTE | 2025-01-17 07:18 | CT Scan Report ---
EXAM: CT chest diagnostic wo con CLINICAL HISTORY: bronchopneumonia, immunocompromised. TECHNIQUE: Contiguous axial images were obtained from the neck base through the upper abdomen without contrast. In addition, sagittal and coronal reconstructions were performed to potentially increase the sensitivity for the detection of disease. CT scan was performed according to ALARA (as low as reasonably achievable) principles. COMPARISON: JULY 25, 2017, 14:27:31 DISTRESSER. FINDINGS: Mild fibroatelectatic changes are noted involving the left lower lobe. A small ground-glass nodule measuring about 5 mm is noted involving the left lower lobe subpleural region. The rest of both lungs is clear. The central airways are patent. There are no pleural effusions. No pneumothorax is seen. Evaluation of the mediastinum and vicki is limited due to the lack of intravenous contrast. No axillary or mediastinal adenopathy is identified. The thyroid is unremarkable. The heart, aorta, and pulmonary arteries are of normal size and configuration. There are no appreciable coronary artery or aortic atherosclerotic calcifications. No pericardial effusion is identified. Imaged portions of the upper abdomen are unremarkable. No aggressive-appearing osseous lesions are identified. IMPRESSION: Mild fibroatelectatic changes are noted involving the left lower lobe ? sequelae of recent infection likely. A small ground-glass nodule measuring about 5 mm is noted involving the left lower lobe ? appears benign; Lung-RADS category 2. The rest of both lungs is clear. Electronically signed by Uriel Maddox 01-17-2025 07:17 AM
[2025-01-17] MEDS: LEVOTHYROXINE SODIUM 112 MCG TABLET PO SCH (09:52)
[2025-01-17] MEDS: PANTOprazole 40 MG/10 ML SYR IV SCH (09:52)
[2025-01-17] MEDS: APIXABAN 5 MG TABLET PO SCH (09:52)
--- NOTE | 2025-01-17 09:58 | Communication Note ---
Subjective: Pt admitted at 0500. Pt reports he continues with audible wheezing and productive cough. Pt is fatigued and lack of appetite. Pt states over the last couple days, he has not eaten but has drank water. He estimated 4-5 larges glasses each day for 2-3 days. Pt denies CP, SOB, fever/chills, abdominal pain, N/V/D, dysuria, or general myalgias Objective: The patient is awake, alert and oriented 3, well developed and well nourished, lying in bed and in no acute distress. HEENT--PERRL, EOMI, MMM. Neck--supple. No JVD. No bruits. Thyroid normal, trachea midline, no adenopath y. Heart--normal S1 and S2. No murmurs, rubs or gallops. Lungs--coarse breath sounds and wheezes bilaterally, right greater than left. No respiratory distress, no accessory muscle use. Abdomen--normal bowel sounds and soft. Nontender. Nondistended, no hernias or masses, no organomegaly. Extremities--No edema. There are good distal pulses b/l. Dermatologic--normal skin turgor, normal color, no abnormal lymph nodes, no rash. Neurologic--cranial nerves II through XII grossly intact. Rheumatologic--normal range of motion. Psychiatric--normal affect. 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 The patient will be admitted for hyponatremia and bronchopneumonia in immunocompromised patient. #Bronchopneumonia/immunocompromised patient- Treat as healthcare associated, Biofire negative. Chest CT shows LLL fibroataletiasis vs infection with 5mm nodule at LLL. IN setting of new onset hypokalemia, will test for legionella. - Started on Cefepime 2 g IV every 8 hours- changed to CTX 2g q24 hrs for narrower coverage - Continue Azithromycin 500 mg IV every 24 hours - Duonebs every 4 hours while awake and q2h prn - Guaifenesin extended release 12 mg 60 mg p.o. q12h - Hycodan syrup 5 mg p.o. every 4 hours as needed severe cough - Acetaminophen 1 g IV q8h prn for mild pain or fever - Pantoprazole 40 mg IV qam Serial CBC with differential, chemistry profile, magnesium level, PT/INR/PTT every morning Stress dose hydrocortisone as noted below Legionella Antigen pending #Hyponatremia/SIADH- S/p Hypertonic saline 3%, 100 mL IV in ED. Component of pneumonia illness with reduction in solvent while increasing solute vs SIADH secondary to hypopituitarism. -Sodium 115 --> 116 -Serum osmolality 243 -Urine osmolality 342 -Continue Sodium chloride 1 g p.o. BID - Continue BMP every 4 hours Treatment of adrenal sufficiency with crisis as below. Consider Samsca if insignificant improvement #Hypopituitarism/central hypogonadism/central hypothyroidism/adrenocortical insufficiency with crisis- Hold hydrocortisone 20 mg every morning and 10 mg every afternoon. Patient had increased to 20 mg twice daily 3 days ago, as had been directed by his outpatient physician if he got sick. - Hydrocortisone 100 mg IV every 8 hours - Add fludrocortisone 0.1 mg p.o. every morning - Continue levothyroxine 112 mcg every morning On testosterone cypionate 50 mg IM every 2 weeks in the outpatient setting Right lower extremity DVT/PE- Continue apixaban Hyperlipidemia- Continue simvastatin BPH with LUTS- Continue tamsulosin at bedtime I personally examined the patient and verified all manzo points of history and exam, discussed case, and agree with decision making with Dr Courtney breathing already feeling better. Fortunately mentally feeling like himself. notes that whenever he was first diagnosed with hypopituitarism/the pituitary tumor it was due to hyponatremia initially. Vitals noted, in general he is awake and alert pleasant no distress. HEENT normocephalic atraumatic mucous membranes moist. Breathing unlabored no accessory muscle use good effort. Skin without rashes pallor or icterus. Neuro without focal deficits. Respiratory distress/bronchitis/pneumoniaZithromax/Rocephin, supportive care, fortunately on room air. Appears to be improving faster than would have expected. Reassuring. Severe hyponatremiaadmitting sodium around 115surprisingly minimally symptomatic. Does not seem to chronically run low, although I do not have access to all of his outpatient labs at this time. Probably predominantly acutely from continuing to hydrate well not really being able to eat (i.e. sort of a polydipsia mechanism "by accident"compounded by his hypopituitarism "turning up the volume" on the hyponatremiabut mostly appears to probably be a euvolemic solute deficit situation versus less likely SIADH related. Reduce stress dose hydrocortisone to 50 every 8 for now, continue fludrocortisone for now. Continue salt supplementationgiven that I suspect largely solute deficiency, will give saline. Continue to follow serum sodiums closelyif it does not start to improve/or worsens, then consider SIADH may be being more dominant and stop the IV fluids, be more aggressive with solute supplementation such as p.o. urea. As long as it is improving, "stay the course"obviously do not want to improve too fastongoing every 4 hour basic metabolic panels. Anticoagulated. Resident Activity Tracking Resident Involvement: Resident Care Provided Care Provided: Adult Hospital Medicine
[2025-01-17] MEDS: FLUDROCORTISONE ACETATE 0.1 MG TAB PO SCH (09:59)
[2025-01-17 10:10] LABS: Anion Gap 9.0 (3-11); Blood Urea Nitrogen 11.0 mg/dl (6-23); Calcium 8.5 mg/dl (8.6-10.3); Carbon Dioxide 23.0 mmol/L (21-32); Chloride 84.0 mmol/L (98-107); Creatinine Clr Calc Pharmacy 92.3 ml/min; Glucose 96.0 mg/dl (70-99(Fasting)); Potassium 3.9 mmol/L (3.5-5.1); Sodium 116.0 mmol/L (136-145)
[2025-01-17] MEDS: cefTRIAXone SODIUM 2,000 MG/50 ML BAG IV SCH (12:37)
[2025-01-17 12:49] LABS: Anion Gap 7.0 (3-11); Blood Urea Nitrogen 12.0 mg/dl (6-23); Calcium 8.4 mg/dl (8.6-10.3); Carbon Dioxide 25.0 mmol/L (21-32); Chloride 82.0 mmol/L (98-107); Creatinine Clr Calc Pharmacy 77.4 ml/min; Glucose 160.0 mg/dl (70-99(Fasting)); Potassium 4.3 mmol/L (3.5-5.1); Sodium 114.0 mmol/L (136-145)
--- NOTE | 2025-01-17 13:27 | Electrocardiogram Report ---
Test Reason : Blood Pressure : */* mmHG Vent. Rate : 78 BPM Atrial Rate : 78 BPM P-R Int : 146 ms QRS Dur : 102 ms QT Int : 394 ms P-R-T Axes : 70 -5 43 degrees QTcB Int : 449 ms Normal sinus rhythm Normal ECG When compared with ECG of 03-Jan-2022 10:18, Nonspecific T wave abnormality now evident in Anterior leads Confirmed by Ravin Templeton ([id number]) on 01/17/2025 1:27:15 PM Referred By: REFERRED SELF Confirmed By: Ravin Templeton
[2025-01-17] MEDS ORDERED: CEFEPIME 2000MG 2,000 MG/20 ML SYR IV SCH (14:00)
[2025-01-17] MEDS: HYDROCORTISONE SOD 100 MG in SYRINGE 0 ML IV SCH (15:15)
[2025-01-17] MEDS: POTASSIUM CHLORIDE 20 MEQ in SODIUM CHLORIDE 0.9% 1,000 ML IV SCH (16:11)
[2025-01-17 17:49] LABS: Anion Gap 12.0 (3-11); Blood Urea Nitrogen 14.0 mg/dl (6-23); Calcium 8.9 mg/dl (8.6-10.3); Carbon Dioxide 24.0 mmol/L (21-32); Chloride 80.0 mmol/L (98-107); Creatinine Clr Calc Pharmacy 74.5 ml/min; Glucose 108.0 mg/dl (70-99(Fasting)); Potassium 4.3 mmol/L (3.5-5.1); Sodium 116.0 mmol/L (136-145)
[2025-01-17] MEDS: guaiFENesin 600 MG TABCR PO SCH (21:14)
[2025-01-17] MEDS: SIMVASTATIN 20 MG TAB PO SCH (21:14)
[2025-01-17] MEDS: TAMSULOSIN HCL 0.4 MG CAP PO SCH (21:15)
[2025-01-17] MEDS: HYDROCORTISONE SOD 50 MG in SYRINGE 0 ML IV SCH (21:15)
[2025-01-17 21:33] LABS: Anion Gap 11.0 (3-11); Blood Urea Nitrogen 15.0 mg/dl (6-23); Calcium 8.6 mg/dl (8.6-10.3); Carbon Dioxide 21.0 mmol/L (21-32); Chloride 85.0 mmol/L (98-107); Creatinine Clr Calc Pharmacy 64.0 ml/min; Glucose 148.0 mg/dl (70-99(Fasting)); Potassium 4.3 mmol/L (3.5-5.1); Sodium 117.0 mmol/L (136-145)
[2025-01-18 01:28] LABS: Anion Gap 6.0 (3-11); Blood Urea Nitrogen 17.0 mg/dl (6-23); Calcium 8.4 mg/dl (8.6-10.3); Carbon Dioxide 23.0 mmol/L (21-32); Chloride 88.0 mmol/L (98-107); Creatinine Clr Calc Pharmacy 68.3 ml/min; Glucose 132.0 mg/dl (70-99(Fasting)); Potassium 5.0 mmol/L (3.5-5.1); Sodium 117.0 mmol/L (136-145)
[2025-01-18] MEDS: SODIUM CHLORIDE 0.9% 1,000 ML IV SCH (02:23)
[2025-01-18] MEDS: ACETAMINOPHEN 1000 MG/100 ML IV IV PRN (05:59)
[2025-01-18] MEDS: AZITHROMYCIN 500 MG/255 ML BAG IV SCH (06:02)
[2025-01-18 06:25] LABS: Hematocrit (blood only) 41.2 % (42.0-52.0); Hemoglobin 14.8 g/dl (14.0-18.0); Immature Granulocytes # (auto) 0.42 K/uL (0.01-0.20); Immature Granulocytes % (auto) 4.6 %; Mean Corpuscular Hemoglobin 27.9 pg (25.0-34.0); Mean Corpuscular Volume 77.7 fL (80.0-100.0); Platelet Count 555 K/uL (130-400); RDW Standard Deviation 38.8 fL (36.4-46.3); Red Blood Count 5.30 M/uL (4.70-6.10); White Blood Count 9.11 K/ul (4.8-10.8)
[2025-01-18 06:54] LABS: INR 1.2 (0.9-1.1); Partial Thromboplastin Time 38 Seconds (21-31); Prothrombin Time 12.2 Seconds (9.0-12.0)
[2025-01-18 07:03] LABS: Alanine Aminotransferase 20.0 U/L (7-52); Albumin Globulin Ratio 1.6 (0.9-2); Albumin Level 4.1 gm/dl (3.4-5.0); Alkaline Phosphatase 56.0 U/L (34-104); Anion Gap 8.0 (3-11); Bilirubin,Total 0.8 mg/dl (0.2-1.0); Blood Urea Nitrogen 17.0 mg/dl (6-23); Calcium 8.6 mg/dl (8.6-10.3); Carbon Dioxide 24.0 mmol/L (21-32); Chloride 90.0 mmol/L (98-107); Creatinine Clr Calc Pharmacy 76.6 ml/min; Globulin 2.6 gm/dl (2.5-4.0); Glucose 94.0 mg/dl (70-99(Fasting)); Potassium 4.4 mmol/L (3.5-5.1); Sodium 122.0 mmol/L (136-145); Total Protein 6.7 gm/dl (6.0-8.3)
[2025-01-18 11:50] LABS: Anion Gap 9.0 (3-11); Blood Urea Nitrogen 18.0 mg/dl (6-23); Calcium 8.5 mg/dl (8.6-10.3); Carbon Dioxide 23.0 mmol/L (21-32); Chloride 90.0 mmol/L (98-107); Creatinine Clr Calc Pharmacy 72.5 ml/min; Glucose 114.0 mg/dl (70-99(Fasting)); Potassium 4.1 mmol/L (3.5-5.1); Sodium 122.0 mmol/L (136-145)
--- NOTE | 2025-01-18 13:49 | Hospitalist Progress Note ---
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 The patient will be admitted for hyponatremia and bronchopneumonia in immunocompromised patient. #Bronchopneumonia/immunocompromised patient- Treat as healthcare associated, Biofire negative. Chest CT shows mild fibroatelectatic changes in LLL, likely sequalea of recent infection with a 5mm ground-glass nodule in the LLL. In setting of new onset hyponatremia, will test for legionella. Urine legionella Ag collected yesterday and results still pending - abx therapy: ceftriaxone 2g q24h & azithromycin 500 mg IV every 24 hours - Duonebs every 4 hours while awake and q2h prn - Guaifenesin extended release 12 mg 60 mg p.o. q12h - Hycodan syrup 5 mg p.o. every 4 hours as needed severe cough - Acetaminophen 1 g IV q8h prn for mild pain or fever - Pantoprazole 40 mg IV qam Serial CBC with differential, chemistry profile, magnesium level, PT/INR/PTT every morning Stress dose hydrocortisone as noted below #Hyponatremia/SIADH- S/p Hypertonic saline 3%, 100 mL IV in ED. Component of pneumonia illness with reduction in solvent while increasing solute vs SIADH secondary to hypopituitarism. -Sodium 115 on admission --> 122 this AM -Serum osmolality 243, Urine osmolality 342, random urine sodium <10 -Continue Sodium chloride 1 g p.o. BID - Continue BMP every 4 hours Treatment of adrenal sufficiency with crisis as below. Consider Samsca if insignificant improvement #Hypopituitarism/central hypogonadism/central hypothyroidism/adrenocortical insufficiency with crisis- - on chronic steroids at home, holding home steroids - hydrocortisone 20 mg every morning and 10 mg every afternoon. Patient had increased to 20 mg twice daily 3 days ago, as had been directed by his outpatient physician if he got sick. - continue hydrocortisone 100 mg IV q8h, fludrocortisone 0.1 mg po qAM - continue synthroid 112 mcg qAM - on testosterone cypionate 50 mg IM every 2 weeks in outpatient setting. Right lower extremity DVT/PE- Continue apixaban Hyperlipidemia- Continue simvastatin BPH with LUTS- Continue tamsulosin at bedtime Dispo: med/tele ; can consider discharge planning once sodium levels have improved DVT: eliquis as above Admission and Anticipated Discharge Date Admission Date: January 17, 2025 Supervising Physician Co-Signing Physician Notes I personally examined the patient and verified all manzo points of history and exam, discussed case, and agree with decision making with Dr Gilbert breathing feels about the same as yesterday. Otherwise feeling okay. Eating and drinking better. Vitals noted, in general he is awake and alert pleasant no distress. HEENT normocephalic atraumatic mucous membranes moist. Breathing unlabored no accessory muscle use good effort. Skin without rashes pallor or icterus. Neuro without focal deficits. Respiratory distress/bronchitis/pneumoniaZithromax/Rocephin, supportive care, fortunately on room air. Doing well in this regard. Continue current course. Severe hyponatremiaadmitting sodium around 115surprisingly minimally symptomatic. Does not seem to chronically run low, although I do not have access to all of his outpatient labs at this time. Probably predominantly acute ly from continuing to hydrate well not really being able to eat (i.e. sort of a polydipsia mechanism "by accident"compounded by his hypopituitarism "turning up the volume" on the hyponatremiabut mostly appears to probably be a euvolemic solute deficit situation versus less likely SIADH related. Reduced stress dose hydrocortisone to 50 every 8 for now, continue fludrocortisone for now. Continue salt supplementationgiven that I suspect largely solute deficiency, Started saline, and overall he is improving. Most recent BMP did show a slight drop down in sodium, but it is unclear yet if that is truly a trend. If it is a trend, obviously stop fluids and it would be clear that there is more SIADH at play than I initially suspected. At this point though, however, would continue to manage as solute deficiency and essentially "accidental polydipsia"(dilution with poor p.o. intake) Anticoagulated. Subjective Patient seen and examined at bedside this morning. No overnight events. No acute distress. Feeling well today, still reporting bothersome cough that has been interrupting his sleep. Tolerating PO w/o nausea or vomiting. Urinating and having bowel movements without concern. No complaint this morning. Denies chest pain, palpitations, SOB, abdominal pain. Review of Systems Review of Systems: All systems reviewed & are unremarkable except as noted in HPI & below Physical Exam Constitutional: WD/WN, vitals as above Respiratory: normal respiratory effort; no respiratory distress, no labored breathing and does not use accessory muscles diminished lung sounds in the bases of lungs bilaterally, otherwise clear to auscultation w/o wheezes, crackles, rhonchi Cardiovascular: RRR, no murmur, no edema Gastrointestinal (Abdomen): Inspection/Auscultation: abdomen normal to inspection; abdomen not distended Musculoskeletal: Head/Neck/Chest: normocephalic and head atraumatic Extremities: extremities normal to inspection Neurologic: no focal neurological deficits Psychiatric: A+Ox3, euthymic affect Results & Data Results & Data Vital Signs (Past 12 Hours) Vital Signs Temp Pulse Pulse Resp BP Pulse Ox O2 Del Method 01/18/25 11:55 36.5 C 88 18 139/72 96 Room Air 01/18/25 10:50 94 H 18 95 Room Air 01/18/25 08:05 36.5 C 94 H 18 123/76 94 Room Air 01/18/25 08:00 80 01/18/25 08:00 Room Air 01/18/25 07:28 86 20 96 Room Air 01/18/25 02:29 36.5 C 84 18 154/78 H 94 Room Air
[2025-01-18 15:47] LABS: Anion Gap 8.0 (3-11); Blood Urea Nitrogen 19.0 mg/dl (6-23); Calcium 8.1 mg/dl (8.6-10.3); Carbon Dioxide 22.0 mmol/L (21-32); Chloride 90.0 mmol/L (98-107); Creatinine Clr Calc Pharmacy 63.9 ml/min; Glucose 137.0 mg/dl (70-99(Fasting)); Potassium 4.0 mmol/L (3.5-5.1); Sodium 120.0 mmol/L (136-145)
[2025-01-18] MEDS ORDERED: STAT IV/IM STA (16:23)
[2025-01-18] MEDS: SODIUM CHLORIDE 3 % 50 ML IV ONE (16:45)
--- NOTE | 2025-01-18 17:38 | Billing Data ---
Date of Service January 18, 2025 Coding Level of Care Code 48953 SUB INP/OBS CARE MIN
[2025-01-18 19:51] LABS: Anion Gap 11.0 (3-11); Blood Urea Nitrogen 20.0 mg/dl (6-23); Calcium 8.5 mg/dl (8.6-10.3); Carbon Dioxide 19.0 mmol/L (21-32); Chloride 94.0 mmol/L (98-107); Creatinine Clr Calc Pharmacy 58.8 ml/min; Glucose 167.0 mg/dl (70-99(Fasting)); Potassium 4.4 mmol/L (3.5-5.1); Sodium 124.0 mmol/L (136-145)
[2025-01-18 23:30] LABS: Anion Gap 8.0 (3-11); Blood Urea Nitrogen 20.0 mg/dl (6-23); Calcium 8.4 mg/dl (8.6-10.3); Carbon Dioxide 24.0 mmol/L (21-32); Chloride 93.0 mmol/L (98-107); Creatinine Clr Calc Pharmacy 63.9 ml/min; Glucose 141.0 mg/dl (70-99(Fasting)); Potassium 4.6 mmol/L (3.5-5.1); Sodium 125.0 mmol/L (136-145)
[2025-01-19 07:16] LABS: Hematocrit (blood only) 41.2 % (42.0-52.0); Hemoglobin 14.0 g/dl (14.0-18.0); Mean Corpuscular Hemoglobin 27.7 pg (25.0-34.0); Mean Corpuscular Volume 81.6 fL (80.0-100.0); Platelet Count 622 K/uL (130-400); RDW Standard Deviation 42.4 fL (36.4-46.3); Red Blood Count 5.05 M/uL (4.70-6.10); White Blood Count 9.43 K/ul (4.8-10.8)
[2025-01-19 07:18] LABS: INR 1.1 (0.9-1.1); Partial Thromboplastin Time 32 Seconds (21-31); Prothrombin Time 11.5 Seconds (9.0-12.0)
[2025-01-19 07:28] LABS: Alanine Aminotransferase 23.0 U/L (7-52); Albumin Globulin Ratio 1.6 (0.9-2); Albumin Level 4.1 gm/dl (3.4-5.0); Alkaline Phosphatase 52.0 U/L (34-104); Anion Gap 8.0 (3-11); Bilirubin,Total 0.6 mg/dl (0.2-1.0); Blood Urea Nitrogen 19.0 mg/dl (6-23); Calcium 8.7 mg/dl (8.6-10.3); Carbon Dioxide 25.0 mmol/L (21-32); Chloride 98.0 mmol/L (98-107); Creatinine Clr Calc Pharmacy 78.7 ml/min; Globulin 2.6 gm/dl (2.5-4.0); Glucose 105.0 mg/dl (70-99(Fasting)); Potassium 4.4 mmol/L (3.5-5.1); Sodium 131.0 mmol/L (136-145); Total Protein 6.7 gm/dl (6.0-8.3)
--- NOTE | 2025-01-19 07:41 | Hospitalist Progress Note ---
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 The patient will be admitted for hyponatremia and bronchopneumonia in immunocompromised patient. #severe hyponatremia/SIADH S/p Hypertonic saline 3%, 100 mL IV in ED. Component of pneumonia illness with reduction in solvent while increasing solute vs SIADH secondary to hypopituitarism. Sodium 115 on admission. Serum osmolality 243, Urine osmolality 342, random urine sodium <10 - Na continued to improve throughout day yesterday. Na now 131 - IV fluids stopped, will repeat BMP to see how sodium levels are without fluids, if continue to improve can discussion home discharge today - Continue Sodium chloride 1 g p.o. BID - Continue BMP every 4 hours Treatment of adrenal sufficiency with crisis as below. Consider Samsca if insignificant improvement #Bronchopneumonia/immunocompromised patient- Treat as healthcare associated, Biofire negative. Chest CT shows mild fibroatelectatic changes in LLL, likely sequalea of recent infection with a 5mm ground-glass nodule in the LLL. In setting of new onset hyponatremia, will test for legionella. Urine legionella Ag results still pending - remained w/o leukocytosis and afebrile. - abx therapy: ceftriaxone 2g q24h & azithromycin 500 mg IV every 24 hours -- swtich to oral?? - Duonebs every 4 hours while awake and q2h prn - Guaifenesin extended release 12 mg 60 mg p.o. q12h - Hycodan syrup 5 mg p.o. every 4 hours as needed severe cough - Acetaminophen 1 g IV q8h prn for mild pain or fever - Pantoprazole 40 mg IV qam Serial CBC with differential, chemistry profile, magnesium level, PT/INR/PTT every morning #Hypopituitarism/central hypogonadism/central hypothyroidism/adrenocortical insufficiency with crisis- - on chronic steroids at home, holding home steroids - hydrocortisone 20 mg every morning and 10 mg every afternoon. Patient had increased to 20 mg twice daily 3 days ago, as had been directed by his outpatient physician if he got s ick. - hydrocortisone 50 mg IV q8h, fludrocortisone 0.1 mg po qAM - continue synthroid 112 mcg qAM - on testosterone cypionate 50 mg IM every 2 weeks in outpatient setting. Right lower extremity DVT/PE- Continue apixaban Hyperlipidemia- Continue simvastatin BPH with LUTS- Continue tamsulosin at bedtime Dispo: med/tele ; likely home discharge today depending on results of repeat BMP this afternoon DVT: eliquis as above Admission and Anticipated Discharge Date Admission Date: January 17, 2025 Physical Exam Constitutional: WD/WN, vitals as above Respiratory: normal respiratory effort; no respiratory distress, no labored breathing and does not use accessory muscles Cardiovascular: RRR, no murmur, no edema Gastrointestinal (Abdomen): Inspection/Auscultation: abdomen normal to inspection; abdomen not distended Musculoskeletal: Head/Neck/Chest: normocephalic and head atraumatic Extremities: extremities normal to inspection Psychiatric: A+Ox3, euthymic affect Results & Data Results & Data Vital Signs (Past 12 Hours) Vital Signs Temp Pulse Pulse Resp BP Pulse Ox O2 Del Method 01/19/25 07:03 68 01/19/25 06:13 79 18 97 Room Air 01/19/25 02:30 36.8 C 71 18 150/75 H 97 Room Air 01/18/25 22:36 36.6 C 74 18 128/70 97 Room Air 01/18/25 22:19 69 01/18/25 20:00 Room Air
[2025-01-19 07:45] LABS: Immature Granulocytes # (auto) 0.56 K/uL (0.01-0.20); Immature Granulocytes % (auto) 5.9 %; Polychromasia 1+; Toxic Vacuolation 2+
[2025-01-19] MEDS: HYDROCORTISONE 10 MG TAB PO SCH ×2 (08:56→12:32)
[2025-01-19 12:34] LABS: Anion Gap 8.0 (3-11); Blood Urea Nitrogen 17.0 mg/dl (6-23); Calcium 8.6 mg/dl (8.6-10.3); Carbon Dioxide 25.0 mmol/L (21-32); Chloride 99.0 mmol/L (98-107); Creatinine Clr Calc Pharmacy 70.5 ml/min; Glucose 111.0 mg/dl (70-99(Fasting)); Potassium 4.1 mmol/L (3.5-5.1); Sodium 132.0 mmol/L (136-145)
--- NOTE | 2025-01-19 12:47 | Discharge Summary ---
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 The patient presents to the emergency department, at the suggestion of his , after 3 days of worsening chest congestion, harsh cough, audible wheezing, progressive fatigue, and decreased oral intake. Workup in the emergency department included abnormal laboratories: Sodium 115, serum osmolality 243, urine osmolality 342 INR 1.2, total bilirubin 1.3, and negative BioFire test. Chest x-ray suggest congestion, bronchitic versus mild vascular. The patient was then referred for evaluation and treatment to [facility]. The patient will be admitted to the PCU. Admission Exam Per Admitting Provider The patient is awake, alert and oriented 3, well developed and well nourished, normocephalic and atraumatic, lying in bed and in no acute distress. HEENT--PERRL, EOMI, mucous membranes and oropharynx mildly dry. Neck--supple. No JVD. No bruits. Thyroid normal, trachea midline, no adenopathy. Heart--normal S1 and S2. No murmurs, rubs or gallops. Lungs--coarse breath sounds and wheezes bilaterally, right greater than left. No respiratory distress, no accessory muscle use. Abdomen--normal bowel sounds and soft. Nontender. Nondistended, no hernias or masses, no organomegaly. Extremities--No edema. There are good distal pulses b/l. Dermatologic--normal skin turgor, normal color, no abnormal lymph nodes, no rash. Neurologic--cranial nerves II through XII grossly intact. Rheumatologic--normal range of motion. Psychiatric--normal affect. Principal Diagnosis hyponatremia/SIADH bronchopneumonia Discharge Data Allergies Allergy/AdvReac Type Severity Reaction Status Date / Time rivaroxaban Allergy Intermediate RASH "DID Verified 01/17/25 02:42 NOT AGREE WITH ME" Consultations 01/17/25 04:24 ED Decision to Admit Stat Ordered Studies 01/17/25 05:08 CT chest diagnostic wo con Stat Hospital Course (1) Bronchopneumonia: (2) Hyponatremia with decreased serum osmolality: (3) SIADH (syndrome of inappropriate ADH production): (4) Adrenocortical crisis: (5) Central hypogonadism: Plan The patient is a 69-year-old male with past medical history including BPH with LUTS, central hypogonadism, hypercholesterolemia, hypopituitarism, incomplete bladder emptying, 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 The patient will be admitted for hyponatremia and bronchopneumonia in immunocompromised patient. #severe hyponatremia/SIADH S/p Hypertonic saline 3%, 100 mL IV in ED. Component of pneumonia illness with reduction in solvent while increasing solute vs SIADH secondary to hypopituitarism. Sodium 115 on admission. Serum osmolality 243, Urine osmolality 342, random urine sodium <10 - Na continued to improve throughout day yesterday. Na now 131. IV fluids, hydrocortisone 50mg IV and fludorcortisone 0.1 mg were stopped. Rechecked BMP 1200 - Na now 132. Because sodium levels improved with stopping fluids and steroids, patient is okay to discharge home. Will resume home steroid doses of hydrocortisone 20mg qAM and 10mg qPM. Continue Sodium chloride 1 g p.o. BID. - repeat BMP in outpatient setting within 2-3 days of discharge. Can follow this up with PCP. #Bronchopneumonia/immunocompromised patient- Treat as healthcare associated, Biofire negative. Chest CT shows mild fibroatelectatic changes in LLL, likely sequalea of recent infection with a 5mm ground-glass nodule in the LLL. In setting of new onset hyponatremia, will test for legionella. Urine legionella Ag results still pending - remained w/o leukocytosis and afebrile through out admission. - abx therapy to be completed on discharge. Azithromycin 500 mg po once daily for one day - total treatment course of 3 days. IV rocephin switched to cefdinir 300 mg po bid for 3 more days, total treatment course of 5 days, - respiratory symptoms managed with DuoNebs every 4 hours while awake and q2h prn, Guaifenesin extended release 12 mg 60 mg p.o. q12h, Hycodan syrup 5 mg p.o. every 4 hours as needed severe cough. Acetaminophen 1 g IV q8h prn for mild pain or fever, Pantoprazole 40 mg IV qam #Hypopituitarism/central hypogonadism/central hypothyroidism/adrenocortical insufficiency with crisis- - on chronic steroids at home. Home doses were held during admission and swit ched to hydrocortisone 50 mg IV q8h, fludrocortisone 0.1 mg po qAM. Sodium levels improved as above with steroid load. - resume home hydrocortisone 20mg po qAM and 10mg po qPM on discharge - continue synthroid 112 mcg qAM - continue testosterone cypionate 50 mg IM every 2 weeks in outpatient setting. Right lower extremity DVT/PE- Continue apixaban Hyperlipidemia- Continue simvastatin BPH with LUTS- Continue tamsulosin at bedtime Dispo: med/tele ; likely home discharge today depending on results of repeat BMP this afternoon DVT: eliquis as above Total Time Total Time Spent Total Time Spent (In Minutes): <30 Discharge Plan Discharge Items Patient Disposition: Home - Self-Care Reason For Visit: BRONCHOPNEUMONIA, IMMUNOCOMPROMISED, LOW SODIUM Discharge Diagnosis: hyponatremia bronchopneumonia Condition on Discharge: Fair Activity: Resume your previous activity Non-emergency contact: Primary Care Provider Call non-emergency contact if: you have any medication questions, your symptoms worsen and you have a fever Follow-up/Referrals: Sandoval Bedolla MD [Primary Care Provider] - Diet: Regular Addtl Attending Provider Instructions: You were admitted to [facility] for weakness with worsening upper respiratory symptoms including cough and congestion. During admission, you were found to have low sodium levels and chest imaging showing likely infection involving your left lung. Chest imaging also showed a small 5 mm nodule in the left lower lung. You were treated with IV antibiotics and fluids during admission. Please follow-up with your PCP within 7 days of discharge to have your sodium levels rechecked and to follow-up on the lung nodule so further workup can be completed outpatient, if needed. Antibiotics were sent to your local pharmacy. Please continue to take as prescribed until course is completed: azithromycin 500 mg once a day for one day (total course is 3 days, 2 doses given during admission) cefdinir 300mg twice daily for 3 days (total course will be 5 days, 2 doses given during admission) Continue taking your home medications as prescribed. RTC if worsening chest pain, trouble breathing, high fever/chills, uncontrollable nausea or vomiting. Pending Studies at Discharge: Yes Studies:: Legionella antigen - urine Stand-Alone Forms: My [facility], Smoking Cessation Medications and DC Order Prescriptions: New azithromycin [Zithromax] 500 mg tablet 500 mg PO ONCE 1 Days Qty: 1 0RF cefdinir 300 mg capsule 300 mg PO BID 3 Days Qty: 6 0RF Continued levothyroxine 112 mcg tablet 112 mcg PO QAM simvastatin 20 mg tablet 20 mg PO HS hydrocortisone 10 mg tablet 10 mg PO QPM hydrocortisone 20 mg tablet 20 mg PO QAM Eliquis 5 mg tablet 5 mg PO BID tamsulosin 0.4 mg Capsule 0.4 mg PO HS testosterone cypionate 100 mg/mL oil 50 mg IM .Q2WK Discharge Orders: Discharge Order (Routine); Ordered 01/19/25 Ordered By: Ewelina Gilbert Admission Data Admit Date/Time: 01/17/25 05:16 Attending Provider: Chavez Collado Admit Provider: Sam Barrientos Primary Care Provider: Sandoval Bedolla Other Providers: Sam Barrientos Other Interventions: Discharge Summary Assessment (RN) Last Done: 01/19/25 12:58 Supervising Physician Co-Signing Physician Notes I personally examined the patient and verified all manzo points of history and exam, discussed case, and agree with decision making with Dr Gilbert Feeling good overall. Feels up to going home. Expresses good understanding of his situation. Vitals noted, in general he is awake and alert pleasant no distress. HEENT normocephalic atraumatic mucous membranes moist. Breathing unlabored no accessory muscle use good effort. Skin without rashes pallor or icterus. Neuro without focal deficits. Respiratory distress/bronchitis/pneumonia (In the setting of at least a relative immunocompromise from his panhypopituitarism and chronic steroid use) was treated withZithromax/Rocephin, supportive care, fortunately on room air. Doing well in this regard. stable for homefinish out course of Zithromax, finish out cephalosporin with cefdinir Severe hyponatremiaadmitting sodium around 115surprisingly minimally symptomatic. Does not seem to chronically run low, although I do not have access to all of his outpatient labs at this time. Probably predominantly acutely from continuing to hydrate well not really being able to eat (i.e. sort of a polydipsia mechanism "by accident"compounded by his hypopituitarism "turning up the volume" on the hyponatremiabut mostly appears to probably be a euvolemic solute deficit situation versus less likely SIADH related. improved nicely managing as above mechanism. Sodium now holding without any outside intervention. Safe/stable for home. Advised to repeat basic metabolic panel in about 2 days, and then follow-up thereafter based on his sodium results. Anticoagulated.
--- NOTE | 2025-01-19 17:22 | Billing Data ---
Date of Service January 19, 2025 Coding Level of Care Code 87058 IN/OBS DISCH 30 MIN/LESS
== END 2025-01-19 14:44 | disposition home or self-care (01) | DRG 194 ==
LOC: SUATTDRO → ED 02:02 → SUATTDRO 05:16 → 2S 05:16